=== PATIENT | male | born 1975 | race Caucasian/White ===

== ENCOUNTER 2016-08-23 18:38 | Emergency (ER) | payer BC, OTHER ==
[2016-08-23] MEDS ORDERED: Aspirin Low Dose CHEW TAB* 81 MG PO ONE (20:04)
[2016-08-23] MEDS ORDERED: Ondansetron INJ* 2 MG/ML VIAL IV ONE (20:05)
[2016-08-23] MEDS ORDERED: Morphine INJ* 4 MG/ML 1 ML SYRINGE IV ONE (20:05)
[2016-08-23] MEDS ORDERED: NS 0.9% 1000 ML* 1,000 ML IV ONE (20:05)
[2016-08-23 20:17] LABS: Hematocrit 47 % (42-52); Hemoglobin 15.8 g/dl (14.0-18.0); Mean Corpuscular HGB Conc 34 g/dl (31-36); Mean Corpuscular Hemoglobin 30 pg (27-31); Mean Corpuscular Volume 88 fL (80-94); Mean Platelet Volume 7 um3 (7.4-10.4); Red Blood Count 5.34 10^6/ul (4.0-5.4); Red Cell Distribution Width 15 % (10.5-15); White Blood Count 7.8 10^3/ul (3.5-10.8)
[2016-08-23 20:27] LABS: Albumin 4.3 g/dL (3.2-5.2); BUN/Creatinine Ratio 13.9 (8-20); Calcium 9.6 mg/dL (8.6-10.3); EGFR Non-African American 74.6 (>60); Globulin 2.6 g/dL (2-4); Total Bilirubin 0.6 mg/dL (0.2-1.0); Total Protein 6.9 g/dL (6.4-8.9)
[2016-08-23 20:29] LABS: Troponin I 0.01 ng/mL (<0.04)
[2016-08-23] MEDS ORDERED: Iohexol 350* (CONTRAST) 500 ML MDV IV ONE (21:11)
--- NOTE | 2016-08-23 21:49 | RAD ---
INDICATION: Chest pain radiating to the back after sitting in car for a long time. Assess for aortic dissection and pulmonary embolism. COMPARISON: November 07, 2015 CT abdomen pelvis. February 24, 2015 chest radiograph. TECHNIQUE: Multidetector CT images were obtained from the lung apices to the ischial tuberosities with 100 mL Omnipaque 350 IV contrast. Multiplanar reformation including maximum intensity projection and 3-D arterial volume rendering. No oral contrast administered. CHEST REPORT: Clear lungs and pleural spaces. Negative for pneumothorax. Negative for thoracic lymphadenopathy, cardiomegaly, pericardial effusion. Normal diameter thoracic aorta. Negative for dissection of the thoracic aorta. The pulmonary arteries are well-opacified to the segmental and subsegmental levels. No filling defects are identified to indicate pulmonary embolism. Negative for thoracic fractures or suspicious osseous lesions. Very mild thoracic degenerative spondylosis. CHEST IMPRESSION: 1. No evidence for aortic dissection. 2. No evidence for pulmonary embolism. 3. No acute intrathoracic disease evident. ABDOMEN PELVIS REPORT: Arterial phase only series limits assessment of the abdominal pelvic viscera. No abnormality of the liver, gallbladder, pancreas, or spleen evident. Negative for CT abnormality of the upper GI, small bowel, or infra cecal appendix. Mild colonic diverticulosis most prominent at the proximal sigmoid colon without findings of diverticulitis. Negative for perienteric inflammatory change, ascites, free air, hernias. Normal adrenal glands. Symmetric cortical phase enhancement of the kidneys. No focal renal lesions or hydronephrosis. Unremarkable ureters and largely decompressed urinary bladder limiting assessment. Symmetric seminal vesicles. Negative for lymphadenopathy. Normal diameter abdominal aorta and iliac arteries. Only minimal atherosclerotic plaque evident at the abdominal aorta. Negative for aortic dissection. Negative for stenosis of the visceral arteries including the bilateral dominant renal arteries and small accessory LEFT renal artery caudal to the dominant renal artery. Physiologic distention of the IVC. Mild bilateral hip joint osteoarthritis. No suspicious focal osseous lesions or fracture. ABDOMEN PELVIS IMPRESSION: 1. No evidence for aneurysm or dissection of the abdominal aorta. 2. Mild diverticulosis of the colon without findings of diverticulitis. 3. No acute abdominal pelvic pathologic process evident.
--- NOTE | 2016-08-23 23:47 | ED ---
Leatha Alan Janilya, scribed for Azucena Stallworth MD on 08/23/16 at 1932 . HPI Chest Pain - HPI Summary HPI Summary: A 41 y/o male came in [facility] presenting w/ a gradual onset of intermittent CP for about a week. At its worst, the pain severity is rated 5/10. The pain comes on when pt is at rest and lasts for a few hours. The pain radiates to back and abd. Pt states he felt like he was going to vomit. However, he did not feel like a reflux. He is not sure whether the pain is worse with deep breaths. Pt states he was in a car for 14 hours a few days ago while on a vacation. And today, for the past 2 hours, pt complains that the pain is more frequent and sharper in character. PMHx HTN. No PMHx of DM or hypercholesterolemia. - History of Current Complaint Chief Complaint: EDChestPainROMI Time Seen by Provider: 08/23/16 19:23 Hx Obtained From: Patient Onset/Duration: Started Days Ago, Atraumatic, Still Present Timing: Intermittent, Lasting Hours Initial Severity: Moderate Current Severity: Moderate Pain Intensity: 8 Pain Scale Used: 0-10 Numeric Chest Pain Location: Diffuse Chest Pain Radiates: Yes Chest Pain Radiates To:: Back, Other - abd Character: Sharp/Stabbing Aggravating Factor(s): Nothing Alleviating Factor(s): Nothing Associated Signs and Symptoms: Positive: Chest Pain, Nausea, Back Pain, Abdominal Pain. Negative: Vomiting - Allergy/Home Medications Allergies/Adverse Reactions: Allergies Allergy/AdvReac Type Severity Reaction Status Date / Time Ketorolac Tromethamine Allergy Hives Verified 12/21/13 22:56 [From Toradol] Metoclopramide [From Reglan] Allergy Agitation Verified 10/05/13 11:17 Sertraline [From Zoloft] Allergy Unknown Verified 12/25/15 13:57 Reaction Details PMH/Surg Hx/FS Hx/Imm Hx Previously Healthy: Yes Endocrine/Hematology History: Denies: Hx Diabetes, Hx Thyroid Disease Cardiovascular History: Reports: Hx Hypertension - MEDICATED, Other Cardiovascular Problems/Disorders - PREV CARDIAC CATH Denies: Hx Congestive Heart Failure, Hx Hypercholesterolemia Respiratory History: Reports: Hx Asthma Denies: Hx Chronic Obstructive Pulmonary Disease (COPD) GI History: Reports: Hx Gastroesophageal Reflux Disease Denies: Hx Ulcer History: Denies: Hx Renal Disease Musculoskeletal History: Reports: Other Musculoskeletal History - RIGHT ACL INJURY/SURGERY - Surgical History Surgery Procedure, Year, and Place: right knee acl repair Hx Anesthesia Reactions: No Infectious Disease History: No Infectious Disease History: Denies: Hx Clostridium Difficile, Hx Hepatitis, Hx Human Immunodeficiency Virus (HIV), Hx of Known/Suspected MRSA, Hx Shingles, Hx Tuberculosis, Traveled Outside the [place] in Last 30 Days - Family History Known Family History: Positive: Other - blood clot Negative: Cardiac Disease - Social History Occupation: Employed Full-time Lives: With Family Alcohol Use: Rare Substance Use Type: Reports: None Smoking Status (MU): Never Smoked Tobacco Review of Systems Positive: Chest Pain Positive: Abdominal Pain, Nausea. Negative: Vomiting Positive: Arthralgia - back pain, Myalgia - back pain All Other Systems Reviewed And Are Negative: Yes Physical Exam Triage Information Reviewed: Yes Vital Signs On Initial Exam: Initial Vitals Temp Pulse Resp BP Pulse Ox 97.5 F 81 16 188/104 100 08/23/16 18:40 08/23/16 18:40 08/23/16 18:40 08/23/16 18:40 08/23/16 18:40 Vital Signs Reviewed: Yes Appearance: Positive: Well-Appearing, No Pain Distress Skin: Positive: Warm, Skin Color Reflects Adequate Perfusion Eyes: Positive: EOMI, SUSHMA ENT: Positive: Pharynx normal, TMs normal Neck: Positive: Supple, Nontender Respiratory/Lung Sounds: Positive: Clear to Auscultation, Breath Sounds Present. Negative: Rales, Rhonchi, Wheezes Cardiovascular: Positive: RRR. Negative: Murmur, Rub, Other - no gallops Abdomen Description: Positive: Nontender, Soft. Negative: Distended, Guarding, Other: - no guarding Bowel Sounds: Positive: Present Musculoskeletal: Positive: Strength/ROM Intact, Other - Reproducible tenderness of sternum. Negative: Edema Left, Edema Right Neurological: Positive: Sensory/Motor Intact, Alert, Oriented to Person Place, Time, CN Intact II-III Psychiatric: Positive: Affect/Mood Appropriate - Wrights Coma Scale Coma Scale Total: 15 Diagnostics - Vital Signs Vital Signs Temp Pulse Resp BP Pulse Ox 08/23/16 19:11 98.1 F 76 16 144/91 97 08/23/16 19:00 75 16 144/91 96 08/23/16 18:57 73 12 97 08/23/16 18:55 146/93 08/23/16 18:40 97.5 F 81 16 188/104 100 - Laboratory Lab Results: Lab Results 08/23/16 08/23/16 08/23/16 Range/Units 19:05 19:05 20:04 WBC 7.8 (3.5-10.8) 10^3/ul RBC 5.34 (4.0-5.4) 10^6/ul Hgb 15.8 (14.0-18.0) g/dl Hct 47 (42-52) % MCV 88 (80-94) fL MCH 30 (27-31) pg MCHC 34 (31-36) g/dl RDW 15 (10.5-15) % Plt Count 198 (150-450) 10^3/ul MPV 7 L (7.4-10.4) um3 Neut % (Auto) 62.2 (38-83) % Lymph % (Auto) 20.4 L (25-47) % [place] % (Auto) 9.6 H (1-9) % Eos % (Auto) 5.4 (0-6) % Baso % (Auto) 2.4 H (0-2) % Absolute Neuts (auto) 4.9 (1.5-7.7) 10^3/ul Absolute Lymphs (auto) 1.6 (1.0-4.8) 10^3/ul Absolute Monos (auto) 0.8 (0-0.8) 10^3/ul Absolute Eos (auto) 0.4 (0-0.6) 10^3/ul Absolute Basos (auto) 0.2 (0-0.2) 10^3/ul Absolute Nucleated RBC 0.04 10^3/ul Nucleated RBC % 0.5 D-Dimer, Quantitative < 200 (Less Than 230) ng/mL Sodium 135 (133-145) mmol/L Potassium 4.0 (3.5-5.0) mmol/L Chloride 101 (101-111) mmol/L Carbon Dioxide 28 (22-32) mmol/L Anion Gap 6 (2-11) mmol/L BUN 15 (6-24) mg/dL Creatinine 1.08 (0.67-1.17) mg/dL Est GFR ( Amer) 96.0 (>60) Est GFR (Non-Af Amer) 74.6 (>60) BUN/Creatinine Ratio 13.9 (8-20) Glucose 107 H (70-100) mg/dL Lactic Acid (0.5-2.0) mmol/L Calcium 9.6 (8.6-10.3) mg/dL Total Bilirubin 0.60 (0.2-1.0) mg/dL AST 28 (13-39) U/L ALT 48 (7-52) U/L Alkaline Phosphatase 79 (34-104) U/L Troponin I 0.01 (<0.04) ng/mL Total Protein 6.9 (6.4-8.9) g/dL Albumin 4.3 (3.2-5.2) g/dL Globulin 2.6 (2-4) g/dL Albumin/Globulin Ratio 1.7 (1-3) 08/23/16 08/23/16 Range/Units 20:04 23:09 WBC (3.5-10.8) 10^3/ul RBC (4.0-5.4) 10^6/ul Hgb (14.0-18.0) g/dl Hct (42-52) % MCV (80-94) fL MCH (27-31) pg MCHC (31-36) g/dl RDW (10.5-15) % Plt Count (150-450) 10^3/ul MPV (7.4-10.4) um3 Neut % (Auto) (38-83) % Lymph % (Auto) (25-47) % [place] % (Auto) (1-9) % Eos % (Auto) (0-6) % Baso % (Auto) (0-2) % Absolute Neuts (auto) (1.5-7.7) 10^3/ul Absolute Lymphs (auto) (1.0-4.8) 10^3/ul Absolute Monos (auto) (0-0.8) 10^3/ul Absolute Eos (auto) (0-0.6) 10^3/ul Absolute Basos (auto) (0-0.2) 10^3/ul Absolute Nucleated RBC 10^3/ul Nucleated RBC % D-Dimer, Quantitative (Less Than 230) ng/mL Sodium (133-145) mmol/L Potassium (3.5-5.0) mmol/L Chloride (101-111) mmol/L Carbon Dioxide (22-32) mmol/L Anion Gap (2-11) mmol/L BUN (6-24) mg/dL Creatinine (0.67-1.17) mg/dL Est GFR ( Amer) (>60) Est GFR (Non-Af Amer) (>60) BUN/Creatinine Ratio (8-20) Glucose (70-100) mg/dL Lactic Acid 1.3 (0.5-2.0) mmol/L Calcium (8.6-10.3) mg/dL Total Bilirubin (0.2-1.0) mg/dL AST (13-39) U/L ALT (7-52) U/L Alkaline Phosphatase (34-104) U/L Troponin I 0.00 (<0.04) ng/mL Total Protein (6.4-8.9) g/dL Albumin (3.2-5.2) g/dL Globulin (2-4) g/dL Albumin/Globulin Ratio (1-3) Result Diagrams: 08/23/16 19:05 08/23/16 20:04 Lab Statement: Any lab studies that have been ordered have been reviewed, and results considered in the medical decision making process. - CT CTA abd/pel CT Interpretation: No Acute Changes - ABDOMEN PELVIS IMPRESSION: 1. No evidence for aneurysm or dissection of the abdominal aorta. 2. Mild diverticulosis of the colon without findings of diverticulitis. 3. No acute abdominal pelvic pathologic process evident. CT Interpretation Completed By: Radiologist - EKG 1846 Cardiac Rate: NL - 85 bpm EKG Rhythm: Sinus Rhythm EKG Interpretation: Mild diffuse flattening of T waves that's new from 2014 Chest Pain Course/Dx - Course Course Of Treatment: A 41 y/o male came in [facility] presenting w/ a gradual onset of intermittent CP for about a week. At its worst, the pain severity is rated 5/ 10. The pain comes on when pt is at rest and lasts for a few hours. The pain radiates to back and abd. Pt states he felt like he was going to vomit. However , he did not feel like a reflux. He is not sure whether the pain is worse with deep breaths. Pt states he was in a car for 14 hours a few days ago while on a vacation. And today, for the past 2 hours, pt complains that the pain is more frequent and sharper in character. PMHx HTN. No PMHx of DM or hypercholesterolemia. EKG was NSR of 85 bpm and shows mild diffuse flattening of T waves that is new from 02/25/2015. CTA chest/abd/pel showed was negative. second trop is negative , ddimer neg and cta neg pt aware he needs an outpt stress - Diagnoses Provider Diagnoses: Chest pain Discharge - Discharge Plan Condition: Stable Disposition: HOME The documentation as recorded by the Leatha vidal Janilya accurately reflects the service I personally performed and the decisions made by me, Azucena Stallworth MD.
[2016-08-24 01:18] VITALS: BP 128/99
== END 2016-08-24 01:20 | disposition home or self-care (01) ==
LOC: ED 18:38
DX: R07.9 Chest pain, unspecified (principal); R11.0 Nausea; M54.9 Dorsalgia, unspecified; R10.9 Unspecified abdominal pain
CPT/HCPCS: 36415; 71275; 74174; 80053; 83605; 84484; 85025; 85379; 93005; 99284; A9270-GY; J2270; J2405; Q9967

== ENCOUNTER 2016-12-07 18:04 | Emergency (ER) | payer BC ==
[2016-12-07] MEDS ORDERED: NS 0.9% 1000 ML* 1,000 ML IV ONE (19:11)
[2016-12-07] MEDS ORDERED: Albuterol/Ipratropium NEB.SOL* Albuterol 2.5 MG/Ipratropium 0.5 MG 3 ML INH ONE (19:11)
[2016-12-07] MEDS ORDERED: Aspirin TAB* 325 MG PO ONE (19:11)
[2016-12-07] MEDS ORDERED: Morphine INJ* 4 MG/ML 1 ML SYRINGE IV ONE ×2 (19:11→20:10)
[2016-12-07 19:27] LABS: Hematocrit 45 % (42-52); Hemoglobin 15.4 g/dl (14.0-18.0); Mean Corpuscular HGB Conc 34 g/dl (31-36); Mean Corpuscular Hemoglobin 30 pg (27-31); Mean Corpuscular Volume 87 fL (80-94); Mean Platelet Volume 7 um3 (7.4-10.4); Red Blood Count 5.16 10^6/ul (4.0-5.4); Red Cell Distribution Width 14 % (10.5-15)
[2016-12-07 19:44] LABS: Albumin 4.3 g/dL (3.2-5.2); BUN/Creatinine Ratio 17.6 (8-20); Calcium 8.9 mg/dL (8.6-10.3); EGFR Non-African American 74.6 (>60); Globulin 2.5 g/dL (2-4); Potassium 3.9 mmol/L (3.5-5.0); Total Bilirubin 0.6 mg/dL (0.2-1.0); Total Protein 6.8 g/dL (6.4-8.9)
[2016-12-07 19:45] LABS: Troponin I 0.01 ng/mL (<0.04)
[2016-12-07 20:07] LABS: TSH (Thyroid Stimulating Horm) 1.9 mcIU/mL (0.34-5.60)
--- NOTE | 2016-12-07 20:31 | RAD ---
Indication: Chest pain. Single frontal view of the chest performed at 1855 hours was reviewed. Comparison is made with previous exam dated February 24, 2015. No mediastinal shift is noted. Heart is of normal size and configuration. Lung muro appear clear. IMPRESSION: NO ACTIVE CARDIOPULMONARY DISEASE IS NOTED.
--- NOTE | 2016-12-07 22:01 | ED ---
Juaquin Alan SooYoung, scribed for Azucena Stallworth MD on 12/07/16 at 1910 . HPI Chest Pain - HPI Summary HPI Summary: A 41 y/o M [place] presents to ED with c/o CP radiating to L-side of neck and into back onset 1700. PMHx: GERD, but today's sx don't feel like that. Associated sx : HENSLEY, diaphoresis, SOB. Denies LE pain. Aggravating factors: deep breaths. States he's been sitting in the car for 8 hours today. - History of Current Complaint Chief Complaint: EDChestPainROMI Time Seen by Provider: 12/07/16 18:52 Hx Obtained From: Patient Onset/Duration: Started Hours Ago, Atraumatic, Still Present Timing: Constant Initial Severity: Mild Current Severity: Mild Pain Intensity: 0 Pain Scale Used: 0-10 Numeric Chest Pain Location: Diffuse Chest Pain Radiates: Yes Chest Pain Radiates To:: Back, Neck Aggravating Factor(s): Deep Breaths Associated Signs and Symptoms: Positive: Headaches - severe, Shortness of Breath , Other: - pos: diaphoresis. Negative: Calf Pain/Swelling - Allergy/Home Medications Allergies/Adverse Reactions: Allergies Allergy/AdvReac Type Severity Reaction Status Date / Time Ketorolac Tromethamine Allergy Hives Verified 12/07/16 18:37 [From Toradol] Metoclopramide [From Reglan] Allergy Agitation Verified 12/07/16 18:37 Sertraline [From Zoloft] Allergy Unknown Verified 12/07/16 18:37 Reaction Details PMH/Surg Hx/FS Hx/Imm Hx Previously Healthy: No Endocrine/Hematology History: Denies: Hx Diabetes, Hx Thyroid Disease Cardiovascular History: Reports: Hx Hypertension - MEDICATED, Other Cardiovascular Problems/Disorders - PREV CARDIAC CATH Denies: Hx Congestive Heart Failure, Hx Hypercholesterolemia, Hx Myocardial Infarction Respiratory History: Reports: Hx Asthma Denies: Hx Chronic Obstructive Pulmonary Disease (COPD) GI History: Reports: Hx Gastroesophageal Reflux Disease Denies: Hx Ulcer History: Denies: Hx Renal Disease Musculoskeletal History: Reports: Other Musculoskeletal History - RIGHT ACL INJURY/SURGERY - Surgical History Surgery Procedure, Year, and Place: right knee acl repair Hx Anesthesia Reactions: No Infectious Disease History: No Infectious Disease History: Denies: Hx Clostridium Difficile, Hx Hepatitis, Hx Human Immunodeficiency Virus (HIV), Hx of Known/Suspected MRSA, Hx Shingles, Hx Tuberculosis, Traveled Outside the [place] in Last 30 Days - Family History Known Family History: Positive: Other - grandmother - blood clot; grandmother - [place] Negative: Cardiac Disease - Social History 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 Lives: With Family Alcohol Use: Weekly Alcohol Amount: a few times a week 3-4 drinks at a time Hx Substance Use: No Substance Use Type: Reports: None Hx Tobacco Use: No Smoking Status (MU): Never Smoked Tobacco Review of Systems Positive: Skin Diaphoresis Positive: Chest Pain Positive: Shortness Of Breath Positive: Other - neg: LE pain Positive: Headache All Other Systems Reviewed And Are Negative: Yes Physical Exam Triage Information Reviewed: Yes Vital Signs On Initial Exam: Initial Vitals Temp Pulse Resp Pulse Ox 97.9 F 80 20 97 12/07/16 18:08 12/07/16 18:08 12/07/16 18:08 12/07/16 18:08 Vital Signs Reviewed: Yes Appearance: Positive: Well-Appearing, No Pain Distress Skin: Positive: Warm, Skin Color Reflects Adequate Perfusion, Dry Eyes: Positive: EOMI, SUSHMA ENT: Positive: Pharynx normal, TMs normal Neck: Positive: Supple, Nontender Respiratory/Lung Sounds: Positive: Clear to Auscultation, Breath Sounds Present. Negative: Rales, Rhonchi, Wheezes Cardiovascular: Positive: RRR. Negative: Murmur, Rub, Other - neg: gallop Abdomen Description: Positive: Nontender, Soft. Negative: Distended, Guarding, Other: - neg: rebound Bowel Sounds: Positive: Present Musculoskeletal: Positive: Strength/ROM Intact. Negative: Edema Left, Edema Right Neurological: Positive: Sensory/Motor Intact, Alert, Oriented to Person Place, Time, CN Intact II-III Psychiatric: Positive: Affect/Mood Appropriate Diagnostics - Vital Signs Vital Signs Temp Pulse Resp BP Pulse Ox 12/07/16 18:34 98.9 F 86 16 166/104 96 12/07/16 18:30 90 22 166/104 96 12/07/16 18:22 84 18 98 12/07/16 18:21 154/103 12/07/16 18:11 173/106 12/07/16 18:08 97.9 F 80 20 97 - Laboratory Lab Results: Lab Results 12/07/16 12/07/16 12/07/16 Range/Units 19:15 19:15 19:15 WBC 7.0 (3.5-10.8) 10^3/ul RBC 5.16 (4.0-5.4) 10^6/ul Hgb 15.4 (14.0-18.0) g/dl Hct 45 (42-52) % MCV 87 (80-94) fL MCH 30 (27-31) pg MCHC 34 (31-36) g/dl RDW 14 (10.5-15) % Plt Count 207 (150-450) 10^3/ul MPV 7 L (7.4-10.4) um3 Neut % (Auto) 54.3 (38-83) % Lymph % (Auto) 25.0 (25-47) % [place] % (Auto) 10.5 H (1-9) % Eos % (Auto) 6.8 H (0-6) % Baso % (Auto) 3.4 H (0-2) % Absolute Neuts (auto) 3.8 (1.5-7.7) 10^3/ul Absolute Lymphs (auto) 1.7 (1.0-4.8) 10^3/ul Absolute Monos (auto) 0.7 (0-0.8) 10^3/ul Absolute Eos (auto) 0.5 (0-0.6) 10^3/ul Absolute Basos (auto) 0.2 (0-0.2) 10^3/ul Absolute Nucleated RBC 0.01 10^3/ul Nucleated RBC % 0.1 D-Dimer, Quantitative (Less Than 230) ng/mL Sodium 135 (133-145) mmol/L Potassium 3.9 (3.5-5.0) mmol/L Chloride 104 (101-111) mmol/L Carbon Dioxide 25 (22-32) mmol/L Anion Gap 6 (2-11) mmol/L BUN 19 (6-24) mg/dL Creatinine 1.08 (0.67-1.17) mg/dL Est GFR ( Amer) 96.0 (>60) Est GFR (Non-Af Amer) 74.6 (>60) BUN/Creatinine Ratio 17.6 (8-20) Glucose 93 (70-100) mg/dL Lactic Acid 0.8 (0.5-2.0) mmol/L Calcium 8.9 (8.6-10.3) mg/dL Total Bilirubin 0.60 (0.2-1.0) mg/dL AST 23 (13-39) U/L ALT 40 (7-52) U/L Alkaline Phosphatase 72 (34-104) U/L CK-MB (CK-2) 2.5 (0.6-6.3) ng/mL Troponin I 0.01 (<0.04) ng/mL B-Natriuretic Peptide ( - 100) pg/mL Total Protein 6.8 (6.4-8.9) g/dL Albumin 4.3 (3.2-5.2) g/dL Globulin 2.5 (2-4) g/dL Albumin/Globulin Ratio 1.7 (1-3) TSH 1.90 (0.34-5.60) mcIU/mL 12/07/16 12/07/16 Range/Units 19:15 19:15 WBC (3.5-10.8) 10^3/ul RBC (4.0-5.4) 10^6/ul Hgb (14.0-18.0) g/dl Hct (42-52) % MCV (80-94) fL MCH (27-31) pg MCHC (31-36) g/dl RDW (10.5-15) % Plt Count (150-450) 10^3/ul MPV (7.4-10.4) um3 Neut % (Auto) (38-83) % Lymph % (Auto) (25-47) % [place] % (Auto) (1-9) % Eos % (Auto) (0-6) % Baso % (Auto) (0-2) % Absolute Neuts (auto) (1.5-7.7) 10^3/ul Absolute Lymphs (auto) (1.0-4.8) 10^3/ul Absolute Monos (auto) (0-0.8) 10^3/ul Absolute Eos (auto) (0-0.6) 10^3/ul Absolute Basos (auto) (0-0.2) 10^3/ul Absolute Nucleated RBC 10^3/ul Nucleated RBC % D-Dimer, Quantitative < 200 (Less Than 230) ng/mL Sodium (133-145) mmol/L Potassium (3.5-5.0) mmol/L Chloride (101-111) mmol/L Carbon Dioxide (22-32) mmol/L Anion Gap (2-11) mmol/L BUN (6-24) mg/dL Creatinine (0.67-1.17) mg/dL Est GFR ( Amer) (>60) Est GFR (Non-Af Amer) (>60) BUN/Creatinine Ratio (8-20) Glucose (70-100) mg/dL Lactic Acid (0.5-2.0) mmol/L Calcium (8.6-10.3) mg/dL Total Bilirubin (0.2-1.0) mg/dL AST (13-39) U/L ALT (7-52) U/L Alkaline Phosphatase (34-104) U/L CK-MB (CK-2) (0.6-6.3) ng/mL Troponin I (<0.04) ng/mL B-Natriuretic Peptide 9 ( - 100) pg/mL Total Protein (6.4-8.9) g/dL Albumin (3.2-5.2) g/dL Globulin (2-4) g/dL Albumin/Globulin Ratio (1-3) TSH (0.34-5.60) mcIU/mL Result Diagrams: 12/07/16 19:15 12/07/16 19:15 Lab Statement: Any lab studies that have been ordered have been reviewed, and results considered in the medical decision making process. - Radiology CXR Xray Interpretation: No Acute Changes - IMPRESSION: No active cardiopulmonary dz. Radiology Interpretation Completed By: Radiologist - EKG 1812 Cardiac Rate: NL - 85bpm EKG Rhythm: Sinus Rhythm ST Segment: Normal - no ST elevation Re-Evaluation - Re-Evaluation 1 Re-Evaluation Time: 20:08 Change: Improved Comment: Discussing results thus far with pt. 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 His ddimer was neg he is awaiting a 6 hour trop and if it is neg he will be discharged - Diagnoses Provider Diagnoses: Chest pain Discharge - Discharge Plan Condition: Stable Disposition: HOME Discharge Disposition Comment: SO to Dr. Gillis at shift change, pending 2nd trop at 2300 Patient Education Materials: Chest Pain (ED) Referrals: Brandy Anguiano MD [Primary Care Provider] - 3 Days Additional Instructions: Follow up with your primary care provider in 2-3 days. Please return to the ED if you experience new or worsening symptoms. The documentation as recorded by the Juaquin vidal SooYoung accurately reflects the service I personally performed and the decisions made by me, Azucena Stallworth MD.
[2016-12-08 02:25] VITALS: BP 127/88
== END 2016-12-08 02:29 | disposition home or self-care (01) ==
LOC: ED 18:04
DX: R07.89 Other chest pain (principal); R51 Headache; R06.02 Shortness of breath; R61 Generalized hyperhidrosis; I10 Essential (primary) hypertension; J45.909 Unspecified asthma, uncomplicated; K21.9 Gastro-esophageal reflux disease without esophagitis
CPT/HCPCS: 36415; 71010; 80053; 82553; 83605; 83880; 84443; 84484; 85025; 85379; 93005; 94640; 94760; 96361; 96374; 96376; 99284; A9270-GY; J2270

== ENCOUNTER 2017-05-07 04:53 | Emergency (ER) | payer BC ==
[2017-05-07 06:16] LABS: ABS Basophils 0.1 10^3/ul (0-0.2); ABS Eosinophils 0.5 10^3/ul (0-0.6); ABS Lymphocytes 1.3 10^3/ul (1.0-4.8); ABS Neutrophils 4.3 10^3/ul (1.5-7.7); ABS Nucleated RBC 0 10^3/ul; Eosinophil % 6.6 % (0-6); Hematocrit 47 % (42-52); Hemoglobin 16.1 g/dl (14.0-18.0); Lymphocyte % 18.8 % (25-47); Mean Corpuscular HGB Conc 35 g/dl (31-36); Mean Corpuscular Hemoglobin 30 pg (27-31); Mean Corpuscular Volume 87 fL (80-94); Mean Platelet Volume 7 um3 (7.4-10.4); Nucleated Red Blood Cells % 0; Platelet Count 211 10^3/ul (150-450); Red Blood Count 5.35 10^6/ul (4.0-5.4); Red Cell Distribution Width 14 % (10.5-15); White Blood Count 7.1 10^3/ul (3.5-10.8)
[2017-05-07] MEDS ORDERED: Ketorolac INJ* 30 MG/ML 1 ML VIAL IV PUSH ONE (06:17)
[2017-05-07 06:30] LABS: EGFR Non-African American 73.5 (>60)
[2017-05-07 08:11] VITALS: BP 133/93
--- NOTE | 2017-05-07 08:14 | RAD ---
INDICATION: Worse headache of his life. COMPARISON: Comparison is made to prior CT of the brain from December 12, 2011. TECHNIQUE: Contiguous axial sections of the brain were obtained from the skull base to the vertex without contrast. FINDINGS: The ventricles, cisterns and sulci are within normal limits. No significant focal abnormality or mass effect is seen. There is no evidence for hemorrhage. No significant focal osseous abnormality is seen. There is mild mucosal thickening within the ethmoid air cells. The visualized portion of the paranasal sinuses and mastoid air cells otherwise appear clear. IMPRESSION: NO EVIDENCE FOR ACUTE INTRACRANIAL ABNORMALITY.
--- NOTE | 2017-05-07 08:24 | RAD ---
Indication: Worst headache of life. Comparison: CT brain of the same date and September 11, 2011 MRI brain. 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 Report: Mild mucosal thickening at the RIGHT maxillary sinus and ethmoid sinuses. Negative for paranasal sinus fluid levels or gas bubbles to suggest acute sinusitis. Mucosal thickening narrows the infundibula of the anterior ostiomeatal units. Mild leftward deviation of the nasal septum. Patent choana and unremarkable nasopharyngeal mucosal space contours. Clear mastoid air spaces. Unremarkable orbital contents. IMPRESSION: Mild mucosal thickening at the RIGHT maxillary and ethmoid sinuses. Negative for stigmata of acute sinusitis.
== END 2017-05-07 08:11 | disposition home or self-care (01) ==
LOC: ED 04:53
DX: G44.009 Cluster headache syndrome, unspecified, not intractable (principal)
CPT/HCPCS: 36415; 70450; 70486; 80053; 85025; 86708; 86803; 87340; 96374; 99284; J1885

== ENCOUNTER 2017-06-23 20:16 | Observation (INO) | payer BC ==
--- OUTSIDE RECORDS SUMMARY | 2017-06-23 20:55 | XMS REPORT ---
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 Ko Estevez MD Primary Care Physician Unavailable Payers Type Date Identification Numbers Payment Provider Subscriber Commercial Policy Number: [id number] BS Jose Mendoza PayID: [id number] [address] [address] Medigap Part B Effective: 2012 Policy Number: [id number] BS Joe Mendoza Expires: 2013 Group Name: [id number] [address] PayID: [id number] [place] [address] [address] Medigap Part B Expires: 2016 Policy Number: [employer] Jennifer Jasmin Miguel [id number] [place] Group Number: [id number] [id number] PayID: [id number] [place] [address] Medigap Part B Expires: 2013 Policy Number: BS Jose Mendoza [id number] PayID: [id number] [address] [address] Medigap Part B Expires: 2010 Policy Number: BS Of GEGE Mendoza [id number] Group Number: [id number] [address] PayID: [id number] [place] [address] [address] Medigap Part B Expires: 2010 PayID: [id number] BS Of GEGE Mendoza [address] [address] Medigap Part B Effective: 2010 Policy Number: BS Of GEGE Mendoza [id number] Expires: 2012 PayID: [id number] [address] [address] [place] [address] Problems Date Description Provider Status Onset: 03/01/2007 Intrinsic asthma without status Ko Estevez Active asthmaticus Flor,FACP Onset: 03/01/2007 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 Active Onset: 07/09/2010 Restless legs Blas Garcia M.D. Active Onset: 10/01/2011 Anxiety state Blas Garcia M.D. Active Onset: 07/14/2012 Lateral epicondylitis Blas Garcia M.D. Active Onset: 02/09/2013 Mixed hyperlipidemia Blas Garcia M.D. Active Onset: 01/26/2014 Obstructive sleep apnea syndrome Tani Brown M.D. 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 Inactive Inactive: 07/06/2014 Onset: 07/14/2012 Neck pain Blas Garcia M.D. Inactive Inactive: 07/06/2014 Onset: 01/05/2013 Chest pain Blas Garcia M.D. Inactive Inactive: 07/06/2014 Onset: 02/09/2013 Blood chemistry abnormal Blas Garcia M.D. Inactive Inactive: 07/06/2014 Onset: 07/06/2014 Hypertriglyceridemia Brandy Anguiano M.D. Inactive Inactive: 12/24/2016 Note: 230 Onset: 03/01/2007 Generalized anxiety disorder Ko Estevez M.D.,FACP Resolved Resolved: 07/06/2014 Onset: 10/22/2007 Extrinsic asthma without Ko Estevez M.D.,FACP Resolved status asthmaticus Resolved: 07/06/2014 Onset: 12/10/2011 Prolonged depressive adjustment Blas Garcia M.D. 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 [employer] Cigarette Use Never Smoked Cigarettes ETOH Use 12/24/2016 consumes 5-6 beers per week Recreational Drug Use Never Used Drugs Smoking Patient has never smoked Daily Caffeine Consumes on average 2 cups of regular coffee per day Exercise Type/Frequency Exercises regularly carries wood /stacking/cleaning/cooki ng, walking 1 mile per day General Hx Text Allergies, Adverse Reactions, Alerts Date Description Reaction Status Severity Comments 03/01/2007 Zoloft active priapism 10/22/2007 Reglan active 11/11/2013 Toradol active Moderate to Severe 02/28/2015 Bee Sting swelling in a matter of active Severe mins Medications Medication Date Status Form Strength Qnty SIG Indications Ordering Provider Tamiflu 05/25 Active Capsules 75mg 10cap 1 by mouth s twice a day x Delmy Estevez 5 maycol Ray,FACP Prednisone 05/25 Hx Tablets 10mg 20tab take 4 tab J45.901 Jimmy s daily x 2 days Júnior, MOLDER TRIMMER - then 3 tab 06/01 daily x 2 days, then 2 tab daily for 2 day, and 1 tab for 2 day. Cheratussin 05/25 Active Syrup 100-10mg/ 118ml take 5-10 J11.89 Jimmy ac 5ML milliliters Júnior, MOLDER TRIMMER every 4-6 hours as needed for cough. Zantac 12/24 Active Tablets 150mg 30tab 1 by mouth in s PM as needed Delmy Estevez M.D.,FACP Viberzi 01/22 Active Tablets 100mg 60tab by mouth twice K58.0 s a day (patient Delmy Estevez, bringing wilman Ray,FACP card) Ventolin HFA 02/28 Active Aerosol 108(90Bas 18uni inhale 2 puffs e) ts by mouth four Delmy Estevez, mcg/Act times a day as Flor,FACP needed Aspirin Adult 02/[address] 81mg 90tab once a day OTC Brandy Low Dose /2014 s Flor Anguiano Epipen 2-Edward 07/06 Active Solution 0.3mg/0.3 2unit subcutaneously Brandy /2015 Auto-Injec ML s as needed for shira Anguiano M.D. Ropinirole 01/26 Active Tablets 0.25mg 30tab take one po 2 Tani SK. HCL s hours before Flor Brown bed time. read the package insert. as needed Blood 11/11 Active Misc 1unit use daily or 796.2 Nanci Pressure /2013 s as directed Puma, Monitor N.P. Auto Inflate Symbicort 03/27 Active Aerosol 160-4.5mc 1unit 2 puff twice a g/Act s day Delmy Estevez M.D.,[facility] Xopenex 09/01 Active Nebulizer 1.25mg/0. 100un four times a J45.40 -Son Concentrate /2008 5ML its day as needed Delmy Estevez M.D.,[facility] Cpap Active Device qhs Unknown Lisinopril Active Tablets 10mg 90tab take one Ko / s tablet by Delmy Estevez, mouth every M.Delmy,FACP day Pantoprazole Active Tablets DR 40mg 30tab take one K21.9 Felicity Sodium / s tablet by Taco, mouth every MOLDER TRIMMER day Prednisone 02/25 Hx Tablets 20mg 10tab 1 by mouth J45.901 Chao Horta /2016 s every day Teri Sweet M.D. 05/25 Ferrous 11/12 Hx Tablets 325(65Fe) 60tab 1 by mouth D64.9 Jay Sulfate /2015 mg s twice a day Vietnamese, MOLDER TRIMMER - 01/22 Pantoprazole 09/[address] 20mg 30tab Take One K21.9 Brandy Sodium /2015 s Tablet By Silvio, - Mouth Every M.D. 11/06 Morning Needed Pantoprazole 08/[address] 40mg 60tab 1 by mouth K21.9 Brandy Sodium /2015 s every day Teri AnguianoDAmberly 09/30 Pantoprazole 07/[address] 20mg 30tab Take One G25.81 Brandy Sodium s Tablet By Silvio, - Mouth Every M.D. 08/20 Morning Needed Ventolin HFA 07/26 Hx Aerosol 108(90Bas 18uni inhale 2 puffs e) ts by mouth four Silvio, - mcg/Act times a day as M.D. 02/27 Medrol (Edward) 08/26 Hx Tablets 4mg 1tabs as directed 493.92 Teri Martinez M.D. 11/11 Benzonatate 08/26 Hx Capsules 100mg 30cap 1 by mouth 3x 493.92 s per day Teri Martinez M.D. 11/11 Doxycycline 02/09 Hx Solution 100mg 20uni bid 466.0 [place] cl Rec Teri Hernandez M.D. 02/09 Doxycycline 02/09 Hx Capsules 100mg 20cap bid po Blas Hyclate Teri Velasquez M.D. 08/26 Flexeril 07/14 Hx Tablets 10mg 10tab 1 tab hs 723.1 Jayde /2013 Teri Montemayor M.D. 01/05 Amoxicillin/C 07/14 Hx Tablets 875-125mg 20tab 1 po bid 466.0 Blas lavulanate Cedric Velasquez M.D. 01/05 Viibryd 03/24 Hx Tablets 20mg 30tab qd 309.1 [place] Teri Velasquez M.D. 01/05 Azithromycin 03/24 Hx Tablets 250mg 6tabs 2 tab today 466.0 and then 1tab Jose, - daily M.D. 07/14 Prednisone 03/24 Hx Tablets 10mg 30tab 5tabx 2days,4 466.0 s [id number] Jose, - [id number],2ta M.D. 07/14 sw8aksu,1tabxd ay. Celexa 12/09 Hx Tablets 20mg 30tab 1 po qd s Jose - M.DAmberly 12/23 Zolpidem 12/09 Hx Tablets 10mg 30tab 1/ to 1 tab 780.52 [place] Tartrate s po qhs prn Teri Garcia M.DAmberly 01/05 Viibryd 12/09 Hx Tablets 40mg 30tab 1 maribel 309.1 s Teri Garcia M.DAmberly 03/24 Citalopram 09/30 Hx Tablets 40mg 30tab 1 po qd 300.00 [place] Hydrobromide s Jose - M.DAmberly 12/23 Zolpidem 09/17 Hx Tablets 5mg 20tab 1 tab by mouth 300.00 Brandy Tartrate s in night as Silvio - needed M.DAmberly 12/09 Meclizine HCL 09/17 Hx Tablets 25mg 20tab 1 tab every 12 386.19 Brandy s hrs Teri Anguiano M.D. 12/09 Venlafaxine 09/08 Hx Caps ER 37.5mg 1mont 1 tab po every 300.02 Jayde HCL ER 24HR h day 7 days opal Martinez, - 2 tab po every M.D. 09/17 day 3 Zithromax 07/17 Hx Tablets 250mg 1tabs 2tab today and 466.0 [place] Z-Edward 1tab daily x Jose, - 4days M.D. 09/08 Augmentin 07/09 Hx Tablets 875-125mg 20tab po bid 466.0 s Teri Garcia.DAmberly 07/09 Proctofoam HC 03/15 Hx Foam 1-1% 1unit apply bid 455.4 Teri Velasquez M.D. 09/08 Doxycycline 07/09 Hx Tablets 100mg 28tab 1 po bid Blas s Teri Garcia M.D. 09/08 Asmanex 120 03/05 Hx Aerosol 220mcg/In one 1 inh bid 493.00 Blas Metered Doses h Teri Garcia M.D. 03/27 Protonix 03/[address] 40mg 30tab Take One G25.81 Brandy s Tablet By Silvio, - Mouth Every M.DAmberly 07/01 Ceftin 04/12 Hx Tablets 500mg 14tab twice a day 493.92 s for 7 days Teri Sanchez M.D. 08/07 Prednisone 01/29 Hx Tablets 10mg 45tab to taken as 493.00 s directed. Teri Sanchez M.D. 08/07 Doxycycline 01/29 Hx Capsules 100mg 20cap 1 tablet po 493.00 [facility] s bid x 10 days , Teri Smiley M.D. 08/07 Zithromax 01/22 Hx Tablets 500mg 3tabs 1 tablet po 493.00 daily for 3 , Teri Smiley.DAmberly 08/07 Tamiflu 01/22 Hx Capsules 75mg 10cap 1 tablet po 493.00 sen s bid , Teri Smiley M.D. 08/07 Tessalon 01/22 Hx Capsules 100mg 30cap 1 po tid 493.00 Chloe s Sherice - M.D. 08/07 Protonix 11/[address] 20mg 30tab 1 po qd Teri Boyd M.D. 03/05 Diltiazem CD 03/27 Hx Caps ER 180mg 30cap 1 po qd 401.1 Chloe 24HR Sherice mercedes - M.D. 03/05 Clarinex 03/17 Hx Tablets 5mg 30tab 1 PO qd 493.00 Ko Teri Brantley M.D.,[facility] 09/01 Clarinex 03/17 Hx Tablets 5mg 30tab 1 po qd 493.00 Teri Velasquez M.D. 01/25 Avelox 03/17 Hx Tablets 400mg 10tab 1 qd x 10 days 493.00 Teri Brantley M.D.,[facility] 09/01 Prednisone 03/17 Hx Tablets 10mg 20tab 4 tabs qdx 2 493.00 s days then 3 Delmy Estevez - tabs daily for M.D.,[facility] 09/01 2 days then tabs daily for 2 days then 1 tab daily x 2 day Zithromax 03/13 Hx Tablets 250mg 1Pak take as Thananart, Z-Edward Teri Melgar M.D. 09/01 Amrix 01/18 Hx Caps ER 30mg 30cap 1 PO QHS 24HR Teri Brantley M.D.,[facility] 03/05 Amrix 01/12 Hx Caps ER 15mg 14cap 1 PO QHS 24HR Teri Brantley M.D.,[facility] 01/18 Lidoderm 01/04 Hx Patches 5% 30uni 1-2 Patches qd 922.33 Ko Patch /2007 tommy Estevez, - On Flor,[facility] 09/01 For 12H Off /2008 For 12H Tylenol/Codei 01/02 Hx Tablets #3 40tab 1-2 po qhs prn Ko ne #3 /2007 Teri [facility]antley M.D.,[facility] 09/01 Requip 12/12 Hx Tablets 1mg 30tab 1 po hs prn Teri Velasquez M.D. 12/09 Claritin 10/21 Hx Tablets 10mg 30tab po qd prn Thananart, Teri Huston M.D. 09/01 Asmanex 30 10/21 Hx Aerosol 220mcg/In 1Mon 1 po qd 493.00 Thananart, Metered Doses Teri Mendoza M.D. 03/05 Penicillin V 05/05 Hx Tablets 500mg 40tab qid for 10 s Teri Brown M.D.,[facility] 10/21 Advair Diskus 03/01 Hx Misc 250/50 3Mon 1 puff bid 493.00 Ko Teri Garcia M.D.,[facility] 10/21 Xopenex HFA 03/01 Hx Aerosol 45mcg/Act 1unit 2 puff four Brandy s times a day as Silvio, - diane Ray 07/26 Singulair 03/01 Hx Tablets 10mg 30tab 1 po qd 493.92 Blas Teri Velasquez M.D. 01/25 Omeprazole 03/01 Hx Capsules 20mg 30cap 1 po qd Teri Pedraza M.D. 01/11 Restoril 03/01 Hx Capsules 15mg 15cap po qhs prn Ko Teri Brantley M.D.,[facility] 09/01 Lexapro 03/01 Hx Tablets 10mg 30tab 1 po every day 300.02 Ko Teri Brantley M.D.,[facility] 10/21 Celexa Hx Tablets 10mg 90tab 1 po qd Unknown /0000 s - 09/30 Ativan 00 Hx Tablets 50tab prn Unknown /0000 s - 12/09 Hydrocodone-A Hx Tablets 5-325mg 8tabs 1 by mouth Unknown cetaminophen /0000 every 4-6 - hours prn. 01/25 Ibuprofen Hx Tablets 600mg 15tab 1 by mouth Unknown /0000 s three times a - day as needed 02/27 Oxycodone-Derrick Hx Tablets 5-325mg bee Stallworthinophen /0000 Teri Zeng MD 02/27 Medications Administered in Office Medication Date Status Form Strength Qnty SIG Indications Ordering Provider Technetium TC Administered Injection Davy Masterson 015 DO Jamilah LynnofosmAMANDEEP lowe Per Unit Dose Up To 40 Millicuries Depomedrol Administered Injection Veronica 80MG Monique Marcus M.D. Immunizations CPT Code Status Date Vaccine Lot # [id number] Given 02/15/2016 Influenza Virus Vaccine, Quadrivalent, Split [id number] Virus, [place] Use [address] Given 07/06/2014 Tdap - Tetanus/Diptheria/Acellular Pertussis [id number] Given 07/06/2014 Pneumococcal Conjugate Vaccine 13 Valent For [id number] Intramuscular Use 55592 Given 11/11/2013 Pneumonia Vaccine [id number] 42284 Given 03/05/2010 Influenza Virus 3Yrs & Over [id number] Refused 02/09/2013 Flu Vaccine Split Virus Preservative Free For Indiv 3Yr Older Vital Signs Date Vital Result Comment 05/25/2017 Weight 229.50 lb Heart Rate 94 /min BP Systolic 140 mmHg BP Diastolic 80 mmHg Body Temperature 98.5 F O2 % BldC Oximetry 96 % 02/25/2017 Height 66 inches 5'6" Weight 235.00 lb Heart Rate 88 /min BP Systolic Sitting 138 mmHg BP Diastolic Sitting 96 mmHg Body Temperature 98.0 F O2 % BldC Oximetry 97 % BMI (Body Mass Index) 37.9 kg/m2 12/24/2016 Height 67 inches 5'7" Weight 228.00 lb Heart Rate 92 /min BP Systolic Sitting 142 mmHg BP Diastolic Sitting 80 mmHg BP Systolic Recheck 95 mmHg BP Diastolic Recheck 75 mmHg Body Temperature 98.2 F O2 % BldC Oximetry 98 % BMI (Body Mass Index) 35.7 kg/m2 02/15/2016 Weight 230.25 lb Heart Rate 82 /min BP Systolic Sitting 138 mmHg BP Diastolic Sitting 80 mmHg Body Temperature 97.6 F O2 % BldC Oximetry 97 % 01/23/2016 Weight 227.25 lb Heart Rate 99 /min BP Systolic Sitting 138 mmHg BP Diastolic Sitting 80 mmHg Body Temperature 97.7 F O2 % BldC Oximetry 98 % 11/13/2015 Height 66 inches 5'6" Weight 226.50 lb Heart Rate 82 /min BP Systolic Sitting 140 mmHg BP Diastolic Sitting 106 mmHg Body Temperature 97.3 F O2 % BldC Oximetry 97 % BMI (Body Mass Index) 36.6 kg/m2 11/07/2015 Height 66 inches 5'6" Weight 226.12 lb Heart Rate 88 /min BP Systolic Sitting 136 mmHg BP Diastolic Sitting 96 mmHg Body Temperature 98.4 F O2 % BldC Oximetry 98 % BMI (Body Mass Index) 36.5 kg/m2 08/21/2015 Weight 228.00 lb Heart Rate 87 /min BP Systolic Sitting 149 mmHg BP Diastolic Sitting 91 mmHg Body Temperature 97.8 F 04/11/2015 Height 66 inches 5'6" Weight 226.00 lb Heart Rate 78 /min BP Systolic Sitting 128 mmHg left arm, large cuff BP Diastolic Sitting 76 mmHg left arm, large cuff BP Systolic Standing 132 mmHg left arm, large cuff BP Diastolic Standing 78 mmHg left arm, large cuff Respiratory Rate 16 /min BMI (Body Mass Index) 36.5 kg/m2 Ejection Fraction 55-60% 03/21/15 02/28/2015 Height 66 inches 5'6" Weight 217.25 lb Heart Rate 96 /min BP Systolic Sitting 106 mmHg BP Diastolic Sitting 74 mmHg Respiratory Rate 18 /min Body Temperature 96.9 F Pain Level 0 O2 % BldC Oximetry 98 % BMI (Body Mass Index) 35.1 kg/m2 12/18/2014 Height 66 inches 5'6" Weight 219.00 lb Heart Rate 86 /min BP Systolic Sitting 128 mmHg BP Diastolic Sitting 82 mmHg O2 % BldC Oximetry 98 % BMI (Body Mass Index) 35.3 kg/m2 07/06/2014 Height 66 inches 5'6" Weight 206.50 lb Heart Rate 80 /min BP Systolic Sitting 134 mmHg BP Diastolic Sitting 91 mmHg BMI (Body Mass Index) 33.3 kg/m2 05/31/2014 Height 66 inches 5'6" Weight 208.00 lb Heart Rate 72 /min BP Systolic Sitting 126 mmHg Ra large cuff BP Diastolic Sitting 80 mmHg Ra large cuff BP Systolic Standing 128 mmHg Ra BP Diastolic Standing 84 mmHg Ra Respiratory Rate 16 /min BMI (Body Mass Index) 33.6 kg/m2 03/30/2014 Height 66 inches 5'6" Weight 227.00 lb Heart Rate 80 /min BP Systolic Sitting 132 mmHg left arm, large cuff BP Diastolic Sitting 94 mmHg left arm, large cuff Respiratory Rate 20 /min O2 % BldC Oximetry 97 % Room air BMI (Body Mass Index) 36.6 kg/m2 Neck Circumference in inches 18 01/26/2014 Height 66 inches 5'6" Weight 213.00 lb Heart Rate 76 /min BP Systolic Sitting 132 mmHg BP Diastolic Sitting 78 mmHg Respiratory Rate 16 /min BMI (Body Mass Index) 34.4 kg/m2 Neck Circumference in inches 18 01/04/2014 Weight 217.50 lb Heart Rate 88 /min BP Systolic 148 mmHg Ra reg cuff BP Diastolic 96 mmHg Ra reg cuff BP Systolic Sitting 152 mmHg LA reg cuff BP Diastolic Sitting 102 mmHg LA reg cuff BP Systolic Standing 144 mmHg LA reg cuff BP Diastolic Standing 102 mmHg LA reg cuff Respiratory Rate 12 /min 11/11/2013 Weight 213.25 lb Heart Rate 104 /min 10 minutes later 84 BP Systolic Sitting 144 mmHg 10 min later 120/80 BP Diastolic Sitting 95 mmHg 10 min later 120/80 Body Temperature 97.8 F 08/26/2013 Weight 215.00 lb Heart Rate 80 /min BP Systolic Sitting 120 mmHg BP Diastolic Sitting 76 mmHg Body Temperature 98.6 F O2 % BldC Oximetry 98 % 02/09/2013 Height 65.75 inches 5'5.75" Weight 211.50 lb Heart Rate 76 /min BP Systolic Sitting 141 mmHg BP Diastolic Sitting 88 mmHg Body Temperature 96.8 F O2 % BldC Oximetry 96 % BMI (Body Mass Index) 34.4 kg/m2 01/05/2013 Height 65.75 inches 5'5.75" Weight 208.75 lb Heart Rate 85 /min BP Systolic Sitting 131 mmHg BP Diastolic Sitting 86 mmHg BMI (Body Mass Index) 33.9 kg/m2 07/14/2012 Height 65.75 inches 5'5.75" Weight 220.00 lb Heart Rate 94 /min BP Systolic Sitting 126 mmHg BP Diastolic Sitting 110 mmHg Body Temperature 98.0 F O2 % BldC Oximetry 98 % BMI (Body Mass Index) 35.8 kg/m2 03/24/2012 Height 65.75 inches 5'5.75" Weight 217.00 lb Heart Rate 81 /min BP Systolic Sitting 120 mmHg BP Diastolic Sitting 92 mmHg Body Temperature 97.4 F O2 % BldC Oximetry 98 % BMI (Body Mass Index) 35.3 kg/m2 12/24/2011 Height 65.75 inches 5'5.75" Weight 214.00 lb Heart Rate 68 /min BP Systolic Sitting 130 mmHg BP Diastolic Sitting 90 mmHg BMI (Body Mass Index) 34.8 kg/m2 12/10/2011 Height 65.75 inches 5'5.75" Weight 216.00 lb Heart Rate 76 /min BP Systolic Sitting 126 mmHg BP Diastolic Sitting 100 mmHg BMI (Body Mass Index) 35.1 kg/m2 10/01/2011 Height 65.75 inches 5'5.75" Weight 200.00 lb Heart Rate 74 /min BP Systolic Sitting 138 mmHg L BP Diastolic Sitting 92 mmHg L BMI (Body Mass Index) 32.5 kg/m2 09/18/2011 Height 65.75 inches 5'5.75" Weight 199.00 lb Heart Rate 96 /min BP Systolic Sitting 132 mmHg BP Diastolic Sitting 90 mmHg BMI (Body Mass Index) 32.4 kg/m2 09/09/2011 Weight 206.00 lb Heart Rate 76 /min BP Systolic Sitting 112 mmHg BP Diastolic Sitting 80 mmHg Body Temperature 96.9 F lt ear 07/17/2010 Heart Rate 72 /min BP Systolic 122 mmHg BP Diastolic 88 mmHg Respiratory Rate 16 /min Body Temperature 96.0 F 07/09/2010 Heart Rate 80 /min BP Systolic 120 mmHg BP Diastolic 90 mmHg 03/27/2010 Weight 198.00 lb Heart Rate 78 /min BP Systolic Sitting 128 mmHg BP Diastolic Sitting 82 mmHg 03/05/2010 Weight 202.00 lb Heart Rate 82 /min BP Systolic 130 mmHg BP Diastolic 84 mmHg 04/17/2009 Heart Rate 104 /min BP Systolic Sitting 112 mmHg BP Diastolic Sitting 76 mmHg Respiratory Rate 16 /min 04/12/2009 Weight 215.25 lb Heart Rate 90 /min BP Systolic Sitting 139 mmHg BP Diastolic Sitting 96 mmHg Body Temperature 97.7 F O2 % BldC Oximetry 97 % 01/30/2009 Weight 209.75 lb Heart Rate 88 /min BP Systolic Sitting 123 mmHg BP Diastolic Sitting 81 mmHg 01/29/2009 Weight 208.00 lb Heart Rate 108 /min BP Systolic Sitting 141 mmHg BP Diastolic Sitting 94 mmHg Body Temperature 97.3 F O2 % BldC Oximetry 98 % 01/22/2009 Heart Rate 97 /min BP Systolic Sitting 144 mmHg BP Diastolic Sitting 104 mmHg Body Temperature 97.9 F O2 % BldC Oximetry 96 % 01/11/2009 Weight 207.00 lb Heart Rate 78 /min BP Systolic Sitting 130 mmHg BP Diastolic Sitting 78 mmHg 10/11/2008 Weight 214.00 lb Heart Rate 62 /min BP Systolic Sitting 142 mmHg BP Diastolic Sitting 94 mmHg 09/01/2008 Height 66 inches 5'6" Weight 211.00 lb Heart Rate 92 /min BP Systolic Sitting 136 mmHg BP Diastolic Sitting 86 mmHg O2 % BldC Oximetry 96 % BMI (Body Mass Index) 34.1 kg/m2 04/28/2008 Height 66 inches 5'6" Weight 205.00 lb Heart Rate 86 /min BP Systolic Sitting 112 mmHg BP Diastolic Sitting 76 mmHg Body Temperature 97.8 F O2 % BldC Oximetry 96 % BMI (Body Mass Index) 33.1 kg/m2 03/17/2008 Height 66 inches 5'6" Weight 167.00 lb BMI (Body Mass Index) 27.0 kg/m2 03/13/2008 Height 66 inches 5'6" Weight 167.00 lb Heart Rate 92 /min BP Systolic Sitting 120 mmHg BP Diastolic Sitting 84 mmHg O2 % BldC Oximetry 96 % BMI (Body Mass Index) 27.0 kg/m2 01/05/2008 Height 66 inches 5'6" Weight 197.00 lb Heart Rate 80 /min BP Systolic Sitting 136 mmHg BP Diastolic Sitting 86 mmHg BMI (Body Mass Index) 31.8 kg/m2 12/28/2007 Height 66 inches 5'6" BP Systolic Sitting 120 mmHg BP Diastolic Sitting 78 mmHg 12/23/2007 Height 66 inches 5'6" Weight 197.00 lb Heart Rate 80 /min BP Systolic Sitting 130 mmHg BP Diastolic Sitting 74 mmHg BMI (Body Mass Index) 31.8 kg/m2 12/22/2007 Height 66 inches 5'6" 12/13/2007 Height 66 inches 5'6" Weight 211.00 lb has on 16 lbs of hardware on Heart Rate 76 /min BP Systolic Sitting 118 mmHg BP Diastolic Sitting 82 mmHg BMI (Body Mass Index) 34.1 kg/m2 10/22/2007 Height 66 inches 5'6" Weight 197.00 lb Heart Rate 80 /min BP Systolic Sitting 120 mmHg BP Diastolic Sitting 80 mmHg BMI (Body Mass Index) 31.8 kg/m2 03/01/2007 Height 66 inches 5'6" Weight 185.00 lb Heart Rate 70 /min BP Systolic Sitting 130 mmHg BP Diastolic Sitting 82 mmHg BMI (Body Mass Index) 29.9 kg/m2 Results Test Date Test Result H/L Range Note CBC Auto Diff 05/07/2017 White Blood Count 7.1 10^3/uL 3.5-10.8 Red Blood Count 5.35 10^6/uL 4.0-5.4 Hemoglobin 16.1 g/dL 14.0-18.0 Hematocrit 47 % 42-52 Mean Corpuscular Volume 87 fL 80-94 Mean Corpuscular Hemoglobin 30 pg 27-31 Mean Corpuscular HGB Conc 35 g/dL 31-36 Red Cell Distribution Width 14 % 10.5-15 Platelet Count 211 10^3/uL 150-450 Mean Platelet Volume 7 um3 Low 7.4-10.4 Abs Neutrophils 4.3 10^3/uL 1.5-7.7 Abs Lymphocytes 1.3 10^3/uL 1.0-4.8 Abs Monocytes 1.0 10^3/uL High 0-0.8 Abs Eosinophils 0.5 10^3/uL 0-0.6 Abs Basophils 0.1 10^3/uL 0-0.2 Abs Nucleated RBC 0 10^3/uL Granulocyte % 60.1 % 38-83 Lymphocyte % 18.8 % Low 25-47 Monocyte % 13.7 % High 1-9 Eosinophil % 6.6 % High 0-6 Basophil % 0.8 % 0-2 Nucleated Red Blood Cells % 0 Comp Metabolic Panel 05/07/2017 Sodium 132 mmol/L Low 133-145 Potassium 3.8 mmol/L 3.5-5.0 Chloride 101 mmol/L 101-111 Co2 Carbon Dioxide 21 mmol/L Low 22-32 Anion Gap 10 mmol/L 2-11 Glucose 87 mg/dL 70-100 Blood Urea Nitrogen 17 mg/dL 6-24 Creatinine 1.09 mg/dL 0.67-1.17 BUN/Creatinine Ratio 15.6 8-20 Calcium 9.6 mg/dL 8.6-10.3 Total Protein 7.0 g/dL 6.4-8.9 Albumin 4.5 g/dL 3.2-5.2 Globulin 2.5 g/dL 2-4 Albumin/Globulin Ratio 1.8 1-3 Total Bilirubin 0.60 mg/dL 0.2-1.0 Alkaline Phosphatase 70 U/L 34-104 Alt 123 U/L High 7-52 Ast 67 U/L High 13-39 Egfr Non- 73.5 >60 Egfr 94.5 >60 1 Laboratory test finding 05/07/2017 Hepatitis B Surface Ag Nonreactive Nonreactive 2 Hepatitis A IgG Antibody, S Negative 3 Hepatitis C Ab - Self Ref Nonreactive Nonreactive CBC Auto Diff 12/18/2016 White Blood Count 7.0 10^3/uL 3.5-10.8 Red Blood Count 5.22 10^6/uL 4.0-5.4 Hemoglobin 16.0 g/dL 14.0-18.0 Hematocrit 45 % 42-52 Mean Corpuscular Volume 87 fL 80-94 Mean Corpuscular Hemoglobin 31 pg 27-31 Mean Corpuscular HGB Conc 35 g/dL 31-36 Red Cell Distribution Width 13 % 10.5-15 Platelet Count 223 10^3/uL 150-450 Mean Platelet Volume 7 um3 Low 7.4-10.4 Abs Neutrophils 3.9 10^3/uL 1.5-7.7 Abs Lymphocytes 2.1 10^3/uL 1.0-4.8 Abs Monocytes 0.6 10^3/uL 0-0.8 Abs Eosinophils 0.4 10^3/uL 0-0.6 Abs Basophils 0 10^3/uL 0-0.2 Abs Nucleated RBC 0 10^3/uL Granulocyte % 55.6 % 38-83 Lymphocyte % 29.6 % 25-47 Monocyte % 8.3 % 1-9 Eosinophil % 6.0 % 0-6 Basophil % 0.5 % 0-2 Nucleated Red Blood Cells % 0 Lipid Profile (Trig/Chol/HDL) 12/18/2016 Triglycerides 154 mg/dL 4 Cholesterol 199 mg/dL 5 HDL Cholesterol 41.4 mg/dL 6 LDL Cholesterol 127 mg/dL 7 Laboratory test finding 12/18/2016 Ferritin 80.7 ng/mL 24-336 8 Laboratory test finding 12/18/2016 Vitamin B12 550 pg/mL 180-914 9 Iron & Iron Binding Capacity 12/18/2016 Iron 106 g/dL 50-212 Unsaturated Iron Binding 212 g/dL Total Iron Binding Capacity 318 g/dL 250-450 % Iron Saturation 33 % 15-55 Laboratory test 12/08/2016 Troponin-I (TnI) 0.01 ng/mL <0.04 finding Laboratory test 12/07/2016 D Dimer Quantitative < 200 ng/mL Less Than 230 10 finding Laboratory test 12/07/2016 TSH (Thyroid Stim 1.90 mcIU/mL 0.34-5.60 finding Horm) CKMB 12/07/2016 CKMB ng/mL 2.5 ng/mL 0.6-6.3 CBC Auto Diff 12/07/2016 White Blood Count 7.0 10^3/uL 3.5-10.8 Red Blood Count 5.16 10^6/uL 4.0-5.4 Hemoglobin 15.4 g/dL 14.0-18.0 Hematocrit 45 % 42-52 Mean Corpuscular Volume 87 fL 80-94 Mean Corpuscular Hemoglobin 30 pg 27-31 Mean Corpuscular HGB Conc 34 g/dL 31-36 Red Cell Distribution Width 14 % 10.5-15 Platelet Count 207 10^3/uL 150-450 Mean Platelet Volume 7 um3 Low 7.4-10.4 Abs Neutrophils 3.8 10^3/uL 1.5-7.7 Abs Lymphocytes 1.7 10^3/uL 1.0-4.8 Abs Monocytes 0.7 10^3/uL 0-0.8 Abs Eosinophils 0.5 10^3/uL 0-0.6 Abs Basophils 0.2 10^3/uL 0-0.2 Abs Nucleated RBC 0.01 10^3/uL Granulocyte % 54.3 % 38-83 Lymphocyte % 25.0 % 25-47 Monocyte % 10.5 % High 1-9 Eosinophil % 6.8 % High 0-6 Basophil % 3.4 % High 0-2 Nucleated Red Blood Cells % 0.1 Laboratory test finding 12/07/2016 Lactic Acid 0.8 mmol/L 0.5-2.0 11 B-Type Natriuretic Peptide BNP 9 pg/mL 12 Comp Metabolic Panel 12/07/2016 Sodium 135 mmol/L 133-145 Potassium 3.9 mmol/L 3.5-5.0 Chloride 104 mmol/L 101-111 Co2 Carbon Dioxide 25 mmol/L 22-32 Anion Gap 6 mmol/L 2-11 Glucose 93 mg/dL 70-100 Blood Urea Nitrogen 19 mg/dL 6-24 Creatinine 1.08 mg/dL 0.67-1.17 BUN/Creatinine Ratio 17.6 8-20 Calcium 8.9 mg/dL 8.6-10.3 Total Protein 6.8 g/dL 6.4-8.9 Albumin 4.3 g/dL 3.2-5.2 Globulin 2.5 g/dL 2-4 Albumin/Globulin Ratio 1.7 1-3 Total Bilirubin 0.60 mg/dL 0.2-1.0 Alkaline Phosphatase 72 U/L 34-104 Alt 40 U/L 7-52 Ast 23 U/L 13-39 Egfr Non- 74.6 >60 Egfr 96.0 >60 13 Laboratory test finding 12/07/2016 Troponin-I (TnI) 0.01 ng/mL <0.04 Laboratory test finding 08/23/2016 Troponin-I (TnI) 0.00 ng/mL <0.04 14 Laboratory test finding 08/23/2016 Lactic Acid 1.3 mmol/L 0.5-2.0 15 Comp Metabolic Panel 08/23/2016 Sodium 135 mmol/L 133-145 Potassium 4.0 mmol/L 3.5-5.0 Chloride 101 mmol/L 101-111 Co2 Carbon Dioxide 28 mmol/L 22-32 Anion Gap 6 mmol/L 2-11 Glucose 107 mg/dL High 70-100 Blood Urea Nitrogen 15 mg/dL 6-24 Creatinine 1.08 mg/dL 0.67-1.17 BUN/Creatinine Ratio 13.9 8-20 Calcium 9.6 mg/dL 8.6-10.3 Total Protein 6.9 g/dL 6.4-8.9 Albumin 4.3 g/dL 3.2-5.2 Globulin 2.6 g/dL 2-4 Albumin/Globulin Ratio 1.7 1-3 Total Bilirubin 0.60 mg/dL 0.2-1.0 Alkaline Phosphatase 79 U/L 34-104 Alt 48 U/L 7-52 Ast 28 U/L 13-39 Egfr Non- 74.6 >60 Egfr 96.0 >60 16 Laboratory test finding 08/23/2016 Troponin-I (TnI) 0.01 ng/mL <0.04 17 CBC Auto Diff 08/23/2016 White Blood Count 7.8 10^3/uL 3.5-10.8 Red Blood Count 5.34 10^6/uL 4.0-5.4 Hemoglobin 15.8 g/dL 14.0-18.0 Hematocrit 47 % 42-52 Mean Corpuscular Volume 88 fL 80-94 Mean Corpuscular Hemoglobin 30 pg 27-31 Mean Corpuscular HGB Conc 34 g/dL 31-36 Red Cell Distribution Width 15 % 10.5-15 Platelet Count 198 10^3/uL 150-450 Mean Platelet Volume 7 um3 Low 7.4-10.4 Abs Neutrophils 4.9 10^3/uL 1.5-7.7 Abs Lymphocytes 1.6 10^3/uL 1.0-4.8 Abs Monocytes 0.8 10^3/uL 0-0.8 Abs Eosinophils 0.4 10^3/uL 0-0.6 Abs Basophils 0.2 10^3/uL 0-0.2 Abs Nucleated RBC 0.04 10^3/uL Granulocyte % 62.2 % 38-83 Lymphocyte % 20.4 % Low 25-47 Monocyte % 9.6 % High 1-9 Eosinophil % 5.4 % 0-6 Basophil % 2.4 % High 0-2 Nucleated Red Blood Cells % 0.5 Laboratory test 08/23/2016 D Dimer Quantitative < 200 ng/mL Less Than 230 18 finding CBC Auto Diff 11/07/2015 White Blood Count 5.9 10^3/uL 3.5-10.8 Red Blood Count 4.27 10^6/uL 4.0-5.4 Hemoglobin 12.8 g/dL Low 14.0-18.0 Hematocrit 37 % Low 42-52 Mean Corpuscular Volume 86 fL 80-94 Mean Corpuscular Hemoglobin 30 pg 27-31 Mean Corpuscular HGB Conc 35 g/dL 31-36 Red Cell Distribution Width 14 % 10.5-15 Platelet Count 192 10^3/uL 150-450 Mean Platelet Volume 7 um3 Low 7.4-10.4 Abs Neutrophils 3.1 10^3/uL 1.5-7.7 Abs Lymphocytes 1.8 10^3/uL 1.0-4.8 Abs Monocytes 0.7 10^3/uL 0-0.8 Abs Eosinophils 0.3 10^3/uL 0-0.6 Abs Basophils 0.1 10^3/uL 0-0.2 Abs Nucleated RBC 0.03 10^3/uL Granulocyte % 53.1 % 38-83 Lymphocyte % 30.2 % 25-47 Monocyte % 11.5 % High 1-9 Eosinophil % 4.3 % 0-6 Basophil % 0.9 % 0-2 Nucleated Red Blood Cells % 0.6 Comp Metabolic Panel 11/07/2015 Sodium 133 mmol/L 133-145 Potassium 3.9 mmol/L 3.5-5.0 Chloride 100 mmol/L Low 101-111 Co2 Carbon Dioxide 28 mmol/L 22-32 Anion Gap 5 mmol/L 2-11 Glucose 76 mg/dL 70-100 Blood Urea Nitrogen 13 mg/dL 6-24 Creatinine 1.18 mg/dL High 0.67-1.17 BUN/Creatinine Ratio 11.0 8-20 Calcium 9.0 mg/dL 8.6-10.3 Total Protein 6.4 g/dL 6.4-8.9 Albumin 4.0 g/dL 3.2-5.2 Globulin 2.4 g/dL 2-4 Albumin/Globulin Ratio 1.7 1-3 Total Bilirubin 0.50 mg/dL 0.2-1.0 Alkaline Phosphatase 63 U/L 34-104 Alt 54 U/L High 7-52 Ast 28 U/L 13-39 Egfr Non- 67.7 >60 Egfr 87.1 >60 19 Laboratory test finding 11/07/2015 Amylase 18 U/L Low 29-103 Lipase 35 U/L 11.0-82.0 Laboratory test finding 02/24/2015 Troponin-I (TnI) 0.00 ng/mL <0.03 20 Comp Metabolic Panel 02/24/2015 Sodium 134 mmol/L 133-145 Potassium 3.6 mmol/L 3.5-5.0 Chloride 101 mmol/L 101-111 Co2 Carbon Dioxide 28 mmol/L 22-32 Anion Gap 5 mmol/L 2-11 Glucose 108 mg/dL High 70-100 Blood Urea Nitrogen 12 mg/dL 6-24 Creatinine 1.17 mg/dL 0.67-1.17 BUN/Creatinine Ratio 10.3 8-20 Calcium 9.5 mg/dL 8.6-10.3 Total Protein 6.8 g/dL 6.4-8.9 Albumin 4.5 g/dL 3.2-5.2 Globulin 2.3 g/dL 2-4 Albumin/Globulin Ratio 2.0 1-3 Total Bilirubin 0.70 mg/dL 0.2-1.0 Alkaline Phosphatase 90 U/L 34-104 Alt 53 U/L High 7-52 Ast 30 U/L 13-39 Egfr Non- 68.7 >60 Egfr 88.4 >60 21 CBC Auto Diff 02/24/2015 White Blood Count 6.8 10^3/uL 4.8-10.8 Red Blood Count 5.38 10^6/uL 4.0-5.4 Hemoglobin 16.3 g/dL 14.0-18.0 Hematocrit 48 % 42-52 Mean Corpuscular Volume 90 fL 80-94 Mean Corpuscular Hemoglobin 30 pg 27-31 Mean Corpuscular HGB Conc 34 g/dL 31-36 Red Cell Distribution Width 14 % 10.5-15 Platelet Count 216 10^3/uL 150-450 Mean Platelet Volume 8 um3 7.4-10.4 Abs Neutrophils 4.1 10^3/uL 1.5-7.7 Abs Lymphocytes 1.8 10^3/uL 1.0-4.8 Abs Monocytes 0.6 10^3/uL 0-0.8 Abs Eosinophils 0.2 10^3/uL 0-0.6 Abs Basophils 0 10^3/uL 0-0.2 Abs Nucleated RBC 0.01 10^3/uL Granulocyte % 60.4 % 38-83 Lymphocyte % 27.1 % 25-47 Monocyte % 9.0 % 1-9 Eosinophil % 3.0 % 0-6 Basophil % 0.5 % 0-2 Nucleated Red Blood Cells % 0.1 Comp Metabolic Panel 12/16/2014 Sodium 136 mmol/L 133-145 Potassium 3.5 mmol/L 3.5-5.0 Chloride 104 mmol/L 101-111 Co2 Carbon Dioxide 23 mmol/L 22-32 Anion Gap 9 mmol/L 2-11 Glucose 125 mg/dL High 70-100 Blood Urea Nitrogen 16 mg/dL 6-24 Creatinine 1.18 mg/dL High 0.67-1.17 BUN/Creatinine Ratio 13.6 8-20 Calcium 9.5 mg/dL 8.6-10.3 Total Protein 6.7 g/dL 6.4-8.9 Albumin 4.5 g/dL 3.2-5.2 Globulin 2.2 g/dL 2-4 Albumin/Globulin Ratio 2.0 1-3 Total Bilirubin 0.70 mg/dL 0.2-1.0 Alkaline Phosphatase 82 U/L 34-104 Alt 47 U/L 7-52 Ast 29 U/L 13-39 Egfr Non- 68.0 >60 Egfr 87.5 >60 22 CBC Auto Diff 12/16/2014 White Blood Count 9.5 10^3/uL 4.8-10.8 Red Blood Count 4.90 10^6/uL 4.0-5.4 Hemoglobin 15.5 g/dL 14.0-18.0 Hematocrit 44 % 42-52 Mean Corpuscular Volume 90 fL 80-94 Mean Corpuscular Hemoglobin 32 pg High 27-31 Mean Corpuscular HGB Conc 35 g/dL 31-36 Red Cell Distribution Width 14 % 10.5-15 Platelet Count 235 10^3/uL 150-450 Mean Platelet Volume 7 um3 Low 7.4-10.4 Abs Neutrophils 5.5 10^3/uL 1.5-7.7 Abs Lymphocytes 2.8 10^3/uL 1.0-4.8 Abs Monocytes 0.9 10^3/uL High 0-0.8 Abs Eosinophils 0.3 10^3/uL 0-0.6 Abs Basophils 0.1 10^3/uL 0-0.2 Abs Nucleated RBC 0 10^3/uL Granulocyte % 57.5 % 38-83 Lymphocyte % 29.2 % 25-47 Monocyte % 9.3 % High 1-9 Eosinophil % 3.3 % 0-6 Basophil % 0.7 % 0-2 Nucleated Red Blood Cells % 0 Urinalysis Profile 12/16/2014 Urine Color Yellow Urine Appearance Clear Urine Specific [place] 1.028 1.010-1.030 Urine pH 5.0 5-9 Urine Urobilinogen Negative Negative Urine Ketones Negative Negative Urine Protein Negative Negative Urine Leukocytes Negative Negative Urine Blood Negative Negative Urine Nitrite Negative Negative Urine Bilirubin Negative Negative Urine Glucose Negative Negative Laboratory test finding 12/16/2014 Lipase 40 U/L 11.0-82.0 C Reactive Protein 3.35 mg/L < 5.00 23 Lactic Acid 1.5 mmol/L 0.5-2.2 Laboratory test finding 03/24/2014 Troponin I 0.00 ng/mL <0.03 24 CBC Auto Diff 03/24/2014 White Blood Count 8.2 10^3/uL 4.8-10.8 Red Blood Count 5.12 10^6/uL 4.0-5.4 Hemoglobin 15.7 g/dL 14.0-18.0 Hematocrit 45 % 42-52 Mean Corpuscular Volume 88 fL 80-94 Mean Corpuscular Hemoglobin 31 pg 27-31 Mean Corpuscular HGB Conc 35 g/dL 31-36 Red Cell Distribution Width 14 % 10.5-15 Platelet Count 202 10^3/uL 150-450 Mean Platelet Volume 7 um3 Low 7.4-10.4 Abs Neutrophils 3.8 10^3/uL 1.5-7.7 Abs Lymphocytes 2.9 10^3/uL 1.0-4.8 Abs Monocytes 1.0 10^3/uL High 0-0.8 Abs Eosinophils 0.4 10^3/uL 0-0.6 Abs Basophils 0.1 10^3/uL 0-0.2 Abs Nucleated RBC 0 10^3/uL Granulocyte % 46.8 % 38-83 Lymphocyte % 35.0 % 25-47 Monocyte % 12.1 % High 1-9 Eosinophil % 5.3 % 0-6 Basophil % 0.8 % 0-2 Nucleated Red Blood Cells % 0 Inr/Protime 03/24/2014 Inr 0.96 0.85-1.06 Laboratory test finding 03/24/2014 Activated Partial 30.9 seconds 24.0- 36.1 Thrombo Time B Type Natriuretic Peptide < 8 pg/mL 25 Comp Metabolic Panel 03/24/2014 Sodium 136 mmol/L 133-145 Potassium 3.8 mmol/L 3.5-5.0 26 Chloride 103 mmol/L 101-111 Co2 Carbon Dioxide 28 mmol/L 22-32 Anion Gap 5 mmol/L 2-11 Glucose 94 mg/dL 70-100 Blood Urea Nitrogen 16 mg/dL 6-24 Creatinine 1.24 mg/dL High 0.67-1.17 BUN/Creatinine Ratio 12.9 8-20 Calcium 9.1 mg/dL 8.6-10.3 Total Protein 6.4 g/dL 6.4-8.9 Albumin 4.2 g/dL 3.2-5.2 Globulin 2.2 g/dL 2-4 Albumin/Globulin Ratio 1.9 1-3 Total Bilirubin 0.50 mg/dL 0.2-1.0 Alkaline Phosphatase 76 U/L 34-104 Alt 46 U/L 7-52 Ast 24 U/L 13-39 Egfr Non- 64.2 >60 Egfr 82.6 >60 27 Laboratory test finding 03/24/2014 Magnesium 2.2 mg/dL 1.9-2.7 Lipase 31 U/L 11.0-82.0 Troponin I 0.01 ng/mL <0.03 28 C Reactive Protein 4.02 mg/L < 5.00 29 Lactic Acid 0.9 mmol/L 0.5-2.2 D Dimer Quantitative < 200 ng/mL Less Than 230 30 Laboratory test finding 12/21/2013 Troponin I 0.01 ng/mL <0.03 31 Myoglobin 23.9 ng/mL 17.4-105.7 TSH (Thyroid Stimulating Horm) 3.62 IU/mL 0.34-5.60 C Reactive Protein 2.52 mg/L < 5.00 32 CKMB 12/21/2013 CKMB ng/mL 2.0 ng/mL 0.6-6.3 Laboratory test finding 12/21/2013 Magnesium 2.1 mg/dL 1.9-2.7 Lipase 34 U/L 11.0-82.0 Creatine Kinase 188 U/L 10-223 Comp Metabolic Panel 12/21/2013 Sodium 137 mmol/L 133-145 Potassium 3.6 mmol/L Low 3.7-5.6 Chloride 103 mmol/L 101-111 Co2 Carbon Dioxide 27 mmol/L 22-32 Anion Gap 7 mmol/L 2-11 Glucose 95 mg/dL 70-100 Blood Urea Nitrogen 15 mg/dL 6-24 Creatinine 1.21 mg/dL High 0.67-1.17 BUN/Creatinine Ratio 12.4 8-20 Calcium 9.1 mg/dL 8.6-10.3 Total Protein 6.5 g/dL 6.4-8.9 Albumin 4.3 g/dL 3.2-5.2 Globulin 2.2 g/dL 2-4 Albumin/Globulin Ratio 2.0 1-3 Total Bilirubin 0.70 mg/dL 0.2-1.0 Alkaline Phosphatase 77 U/L 34-104 Alt 45 U/L 7-52 Ast 27 U/L 13-39 Egfr Non- 66.4 >60 Egfr 85.4 >60 33 Laboratory test finding 12/21/2013 Activated Partial 29.7 seconds 24.0- 36.1 Thrombo Time D Dimer Quantitative < 200 ng/mL Less Than 230 34 Lactic Acid 1.2 mmol/L 0.5-2.2 B Type Natriuretic Peptide 20 pg/mL 35 Inr/Protime 12/21/2013 Inr 0.89 0.85-1.06 CBC Auto Diff 12/21/2013 White Blood Count 7.5 10^3/uL 4.8-10.8 Red Blood Count 5.03 10^6/uL 4.0-5.4 Hemoglobin 15.5 g/dL 14.0-18.0 Hematocrit 45 % 42-52 Mean Corpuscular Volume 89 fL 80-94 Mean Corpuscular Hemoglobin 31 pg 27-31 Mean Corpuscular HGB Conc 35 g/dL 31-36 Red Cell Distribution Width 14 % 10.5-15 Platelet Count 213 10^3/uL 150-450 Mean Platelet Volume 7 um3 Low 7.4-10.4 Abs Neutrophils 3.6 10^3/uL 1.5-7.7 Abs Lymphocytes 2.6 10^3/uL 1.0-4.8 Abs Monocytes 0.8 10^3/uL 0-0.8 Abs Eosinophils 0.4 10^3/uL 0-0.6 Abs Basophils 0 10^3/uL 0-0.2 Abs Nucleated RBC 0.01 10^3/uL Granulocyte % 48.4 % 38-83 Lymphocyte % 35.0 % 25-47 Monocyte % 10.9 % High 1-9 Eosinophil % 5.2 % 0-6 Basophil % 0.5 % 0-2 Nucleated Red Blood Cells % 0.1 Lipid Profile (Trig/Chol/HDL) 01/04/2013 Triglycerides 230 mg/dL High 40- 200 Cholesterol 194 mg/dL Less than 200 HDL Cholesterol 41 mg/dL 40-60 36 Cholesterol/HDL Ratio 4.7 Average High 1-4.44 LDL Cholesterol 107.0 High Less Than 100 37 Comp Metabolic Panel 01/04/2013 Sodium 138 mmol/L 133-145 Potassium 4.4 mmol/L 3.5-5.0 Chloride 104 mmol/L 101-111 Co2 Carbon Dioxide 29.0 mmol/L 22-32 Anion Gap 5.0 mmol/L 2-11 Glucose 105 mg/dL High 70-100 Blood Urea Nitrogen 10 mg/dL 6-24 Creatinine 1.00 mg/dL 0.50-1.40 BUN/Creatinine Ratio 10.0 8-20 Calcium 9.5 mg/dL 8.1-9.9 Total Protein 6.0 g/dL Low 6.2-8.1 Albumin 4.1 g/dL 3.6-5.4 Globulin 1.9 g/dL Low 2-4 Albumin/Globulin Ratio 2.2 1-3 Total Bilirubin 0.9 mg/dL 0.4-1.5 Alkaline Phosphatase 82 U/L 30-110 Alt 43 U/L 14-54 Ast 26 U/L 12-42 Egfr Non- 83.2 >60 Egfr 107.0 >60 38 Laboratory test finding 12/10/2011 Rheumatoid Factor < 15 IU/mL < 15 39 Lyme Disease Serology Negative Negative 40 Erythrocyte Sed Rate 5 MM/HR 0-15 Donna (Antinuclear Antibodies) 12/10/2011 Antinuclear AB NEGATIVE Negative Comp Metabolic Panel 12/10/2011 Sodium 135 mmol/L 135-145 Potassium 4.3 mmol/L 3.5-5.0 Chloride 102 mmol/L 101-111 Co2 (Carbon Dioxide) 29.0 mmol/L 22-32 Anion Gap 4.0 mmol/L 2-11 41 Glucose 73 mg/dL 70-100 BUN 11 mg/dL 6-24 Creatinine 1.1 mg/dL 0.50-1.40 One Over Creatinine 0.90 BUN/Creatinine Ratio 10.0 8-20 Calcium 9.2 mg/dL 8.1-9.9 Total Protein 6.4 GM/DL 6.2-8.1 Albumin 4.2 GM/DL 3.6-5.4 Globulin 2.2 GM/DL 2-4 Albumin/Globulin Ratio 1.9 1-3 Bilirubin Total 0.9 mg/dL 0.4-1.5 42 Alkaline Phosphatase 89 U/L 39-117 Alt (SGPT) 48 U/L 17-63 Ast (Sgot) 32 U/L 12-42 eGFR Non- 74.9 > 60 eGFR 96.3 > 60 43 Vad 12/10/2011 Vad Final Nonreactive Nonreactive 44 Syphilis Screen 12/10/2011 Syphilis IgG NON-REACTIVE Nonreactive 45 RPR TNP Nonreactive Pediatric/Maternal NO CBC Auto Diff 09/11/2011 White Blood Count 7.1 CUMM 4.8-10.8 Red Cell Count 5.28 CUMM 4.6-6.2 Hemoglobin 16.7 g/dL 14.0-18.0 Hematocrit 48 % 42-52 Mean Corpuscular Volume 91 um3 80-94 Mean Corpuscular Hemoglob 32 pg High 27-31 Mean Corpuscular HGB Cone 35 g/dL 32-36 Redcell Distribution WDTH 13 % 10.5-15 Platelet Count 197 CUMM 150-450 Mean Platelet Volume 7.9 um3 7.4-10.4 Gran % 74.6 % 38-83 Lymph % 15.2 % Low 25-47 Mononuclear % 8.0 % 1-9 Eosinophil % 2.0 % 0-6 Basophil % 0.2 % 0-2 Abs Lymphs 1.1 1.0-4.8 Abs Mononuclear 0.6 0-0.8 Absolute Neutrophil Count 5.3 1.5-7.7 Abs Eosinophils 0.1 0-0.6 Abs Basophils 0 0-0.2 Protime 09/11/2011 Inr 1.02 0.88-1.13 46 Protime 12.1 SEC 10.3-13.5 47 Comp Metabolic Panel 09/11/2011 Sodium 132 mmol/L Low 135-145 Potassium 5.0 mmol/L 3.5-5.0 Chloride 101 mmol/L 101-111 Co2 (Carbon Dioxide) 26.0 mmol/L 22-32 Anion Gap 5.0 mmol/L 2-11 48 Glucose 126 mg/dL High 70-100 BUN 9 mg/dL 6-24 Creatinine 1.2 mg/dL 0.50-1.40 One Over Creatinine 0.83 BUN/Creatinine Ratio 7.5 Low 8-20 Calcium 8.9 mg/dL 8.1-9.9 Total Protein 6.6 GM/DL 6.2-8.1 Albumin 4.3 GM/DL 3.6-5.4 Globulin 2.3 GM/DL 2-4 Albumin/Globulin Ratio 1.9 1-3 Bilirubin Total 1.4 mg/dL 0.4-1.5 49 Alkaline Phosphatase 90 U/L 39-117 Alt (SGPT) 57 U/L 17-63 Ast (Sgot) 34 U/L 12-42 eGFR Non- 67.8 > 60 eGFR 87.1 > 60 50 Laboratory test finding 09/11/2011 Troponin-I 0 NG/ML 0-0.06 51 C Reactive Protein < 0.5 mg/dL Less Than 0.5 Erythrocyte Sed Rate 2 MM/HR 0-15 Laboratory test finding 09/04/2011 Troponin-I 0 NG/ML 0-0.06 52 CPK (Creatine Kinase) 144 U/L 0-200 Comp Metabolic Panel 09/04/2011 Sodium 136 mmol/L 135-145 Potassium 4.3 mmol/L 3.5-5.0 Chloride 103 mmol/L 101-111 Co2 (Carbon Dioxide) 26.0 mmol/L 22-32 Anion Gap 7.0 mmol/L 2-11 53 Glucose 130 mg/dL High 70-100 BUN 10 mg/dL 6-24 Creatinine 1.0 mg/dL 0.50-1.40 One Over Creatinine 1.00 BUN/Creatinine Ratio 10.0 8-20 Calcium 9.2 mg/dL 8.1-9.9 Total Protein 6.7 GM/DL 6.2-8.1 Albumin 4.1 GM/DL 3.6-5.4 Globulin 2.6 GM/DL 2-4 Albumin/Globulin Ratio 1.6 1-3 Bilirubin Total 0.7 mg/dL 0.4-1.5 54 Alkaline Phosphatase 79 U/L 39-117 Alt (SGPT) 47 U/L 17-63 Ast (Sgot) 29 U/L 12-42 eGFR Non- 83.6 > 60 eGFR 107.5 > 60 55 CBC Auto Diff 09/04/2011 White Blood Count 6.2 CUMM 4.8-10.8 Red Cell Count 5.36 CUMM 4.6-6.2 Hemoglobin 17.1 g/dL 14.0-18.0 Hematocrit 48 % 42-52 Mean Corpuscular Volume 90 um3 80-94 Mean Corpuscular Hemoglob 32 pg High 27-31 Mean Corpuscular HGB Cone 35 g/dL 32-36 Redcell Distribution WDTH 13 % 10.5-15 Platelet Count 208 CUMM 150-450 Mean Platelet Volume 7.4 um3 7.4-10.4 Gran % 60.6 % 38-83 Lymph % 27.2 % 25-47 Mononuclear % 7.3 % 1-9 Eosinophil % 4.0 % 0-6 Basophil % 0.9 % 0-2 Abs Lymphs 1.7 1.0-4.8 Abs Mononuclear 0.4 0-0.8 Absolute Neutrophil Count 3.7 1.5-7.7 Abs Eosinophils 0.2 0-0.6 Abs Basophils 0.1 0-0.2 56 CBC No Diff 11/10/2010 White Blood Count 7.9 CUMM 4.8-10.8 Red Cell Count 5.30 CUMM 4.6-6.2 Hemoglobin 16.6 g/dL 14.0-18.0 Hematocrit 48 % 42-52 Mean Corpuscular Volume 91 um3 80-94 Mean Corpuscular Hemoglob 31 pg 27-31 Mean Corpuscular HGB Cone 34 g/dL 32-36 Redcell Distribution WDTH 14 % 10.5-15 Platelet Count 238 CUMM 150-450 Mean Platelet Volume 7.7 um3 7.4-10.4 Comp Metabolic Panel 11/10/2010 Sodium 138 mmol/L 135-145 Potassium 3.5 mmol/L 3.5-5.0 Chloride 105 mmol/L 101-111 Co2 (Carbon Dioxide) 26.0 mmol/L 22-32 Anion Gap 7.0 mmol/L 2-11 57 Glucose 95 mg/dL 70-100 BUN 11 mg/dL 6-24 Creatinine 0.97 mg/dL 0.50-1.40 One Over Creatinine 1.00 BUN/Creatinine Ratio 11.3 8-20 Calcium 9.2 mg/dL 8.1-9.9 Total Protein 7.8 GM/DL 6.2-8.1 Albumin 4.5 GM/DL 3.6-5.4 Globulin 3.3 GM/DL 2-4 Albumin/Globulin Ratio 1.4 1-3 Bilirubin Total 0.8 mg/dL 0.4-1.5 58 Alkaline Phosphatase 87 U/L 39-117 Alt (SGPT) 68 U/L High 17-63 Ast (Sgot) 42 U/L 12-42 eGFR Non- 87.1 > 60 eGFR 112.0 > 60 59 Laboratory test finding 11/10/2010 Troponin-I 0 NG/ML 0-0.06 60 Amylase 29 U/L 20-120 61 Lipase 37 U/L 22-51 Laboratory test finding 03/23/2010 Amylase 26 U/L 20-120 62 Lipase 22 U/L 22-51 Manual Differential 03/23/2010 Polysegmented Neutrophil 83 % 38-83 Lymphocyte 9 % Low 25-47 Monocyte 4 % 0-13 Eosinophil 2 % 0-6 Atypical Lymph 2 % 0-6 Absolute Neutrophil Count 6.6 RBC Morphology NORMAL CBC With Electronic Diff 03/23/2010 White Blood Count 8.0 CUMM 4.8-10.8 Red Cell Count 5.47 CUMM 4.6-6.2 Hemoglobin 17.1 g/dL 14.0-18.0 Hematocrit 49 % 42-52 Mean Corpuscular Volume 90 um3 80-94 Mean Corpuscular Hemoglob 31 pg 27-31 Mean Corpuscular HGB Cone 35 g/dL 32-36 Redcell Distribution WDTH 14 % 10.5-15 Platelet Count 228 CUMM 150-450 Mean Platelet Volume 6.5 um3 Low 7.4-10.4 63 Comp Metabolic Panel 03/23/2010 Sodium 143 mmol/L 135-145 Potassium 4.1 mmol/L 3.5-5.0 Chloride 108 mmol/L 101-111 Co2 (Carbon Dioxide) 26.0 mmol/L 22-32 Anion Gap 9.0 mmol/L 2-11 64 Glucose 110 mg/dL High 70-100 65 BUN 10 mg/dL 6-24 Creatinine 1.10 mg/dL 0.50-1.40 One Over Creatinine 0.90 BUN/Creatinine Ratio 9.1 8-20 Calcium 9.6 mg/dL 8.1-9.9 Total Protein 7.3 GM/DL 6.2-8.1 Albumin 4.8 GM/DL 3.6-5.4 Globulin 2.5 GM/DL 2-4 Albumin/Globulin Ratio 1.9 1-3 Bilirubin Total 1.5 mg/dL 0.4-1.5 66 Alkaline Phosphatase 73 U/L 39-117 Alt (SGPT) 40 U/L 17-63 Ast (Sgot) 30 U/L 12-42 eGFR Non- 80.1 > 60 eGFR 96.9 > 60 67 Urinalysis W/Microscopic 03/23/2010 Ua Color YELLOW Yellow Appearance-Urine CLEAR Clear Specific [place]-Ur 1.025 1.010-1.030 Esterase-Urine NEGATIVE Negative Nitrite NEGATIVE Negative [id number] NEGATIVE Negative Protein-Urine 1+ Negative PH-Urine 8.5 5-9 Blood-Urine NEGATIVE Negative Ketones-Urine TRACE Negative Bilirubin-Ur NEGATIVE Negative Glucose-Urine NEGATIVE Negative WBC-Urine 0-2 0-5 RBC-Urine 0-2 0-2 Bacteria-Urine TRACE None Laboratory test finding 01/19/2009 Troponin-I (TnI) 0.02 NG/ML 68 Amylase 33 U/L 30-125 Lipase 25 U/L 22-51 CMP Panel Stat 01/19/2009 Sodium 138 mmol/L 135-145 Potassium 4.6 mmol/L 3.5-5.0 Chloride 106 mmol/L 101-111 Co2 (Carbon Dioxide) 25.0 mmol/L 22-32 Anion Gap 7.0 mmol/L 2-11 69 Glucose 87 mg/dL 70-100 70 BUN 11 mg/dL 6-24 Creatinine 1.00 mg/dL 0.50-1.40 One Over Creatinine 1.00 BUN/Creatinine Ratio 11.0 8-20 Calcium 9.3 mg/dL 8.1-9.9 71 Total Protein 6.8 GM/DL 6.2-8.1 Albumin 4.4 GM/DL 3.6-5.4 Globulin 2.4 GM/DL 2-4 Albumin/Globulin Ratio 1.8 1-3 Bilirubin Total 0.9 mg/dL 0.4-1.5 72 Alkaline Phosphatase 80 U/L 39-117 Alt (SGPT) 32 U/L 17-63 Ast (Sgot) 23 U/L 12-42 eGFR Non- 90.4 > 60 eGFR 109.4 > 60 73 CBC With Electronic Diff Stat 01/19/2009 White Blood Count 8.0 CUMM 4.8- 10.8 Red Cell Count 5.28 CUMM 4.6-6.2 Hemoglobin 16.4 g/dL 14.0-18.0 Hematocrit 48 % 42-52 Mean Corpuscular Volume 90 um3 80-94 Mean Corpuscular Hemoglob 31 pg 27-31 Mean Corpuscular HGB Cone 34 g/dL 32-36 Redcell Distribution WDTH 14 % 10.5-15 Platelet Count 244 CUMM 150-450 Mean Platelet Volume 7.4 um3 7.4-10.4 Gran % 60.1 % 38-83 Lymph % 24.9 % Low 25-47 Mononuclear % 10.0 % High 1-9 Eosinophil % 4.5 % 0-6 Basophil % 0.5 % 0-2 Abs Lymphs 2.0 1.0-4.8 Abs Mononuclear 0.8 0-0.8 Absolute Neutrophil Count 4.8 1.5-7.7 Abs Eosinophils 0.4 0-0.6 Abs Basophils 0 0-0.2 Basic Metabolic Panel 11/22/2008 Sodium 136 mmol/L 135-145 Potassium 4.2 mmol/L 3.5-5.0 Chloride 104 mmol/L 101-111 Co2 (Carbon Dioxide) 24.0 mmol/L 22-32 Anion Gap 8.0 mmol/L 2-11 74 Glucose 131 mg/dL High 70-100 75 BUN 13 mg/dL 6-24 Creatinine 1.08 mg/dL 0.50-1.40 One Over Creatinine 0.90 BUN/Creatinine Ratio 12.0 8-20 Calcium 8.9 mg/dL 8.1-9.9 76 eGFR Non- 82.7 > 60 eGFR 100.1 > 60 77 CBC With Manual Diff 11/22/2008 White Blood Count 15.0 CUMM High 4.8-10.8 Red Cell Count 4.63 CUMM 4.6-6.2 Hemoglobin 14.4 g/dL 14.0-18.0 Hematocrit 42 % 42-52 Mean Corpuscular Volume 90 um3 80-94 Mean Corpuscular Hemoglob 31 pg 27-31 Mean Corpuscular HGB Cone 34 g/dL 32-36 Redcell Distribution WDTH 14 % 10.5-15 Platelet Count 227 CUMM 150-450 Mean Platelet Volume 7.2 um3 Low 7.4-10.4 Polysegmented Neutrophil 84 % High 38-83 Band Neutrophil 3 % 0-8 Lymphocyte 9 % Low 25-47 Monocyte 4 % 0-13 Absolute Neutrophil Count 13.0 RBC Morphology NORMAL CBC With Manual Diff 11/21/2008 White Blood Count 12.0 CUMM High 4.8-10.8 Red Cell Count 4.70 CUMM 4.6-6.2 Hemoglobin 14.6 g/dL 14.0-18.0 Hematocrit 42 % 42-52 Mean Corpuscular Volume 90 um3 80-94 Mean Corpuscular Hemoglob 31 pg 27-31 Mean Corpuscular HGB Cone 35 g/dL 32-36 Redcell Distribution WDTH 14 % 10.5-15 Platelet Count 203 CUMM 150-450 Mean Platelet Volume 6.8 um3 Low 7.4-10.4 Polysegmented Neutrophil 94 % High 38-83 Lymphocyte 4 % Low 25-47 Monocyte 2 % 0-13 Absolute Neutrophil Count 11.2 RBC Morphology NORMAL Basic Metabolic Panel 11/21/2008 Sodium 131 mmol/L Low 135-145 Potassium 4.4 mmol/L 3.5-5.0 Chloride 104 mmol/L 101-111 Co2 (Carbon Dioxide) 24.0 mmol/L 22-32 Anion Gap 3.0 mmol/L 2-11 78 Glucose 143 mg/dL High 70-100 79 BUN 12 mg/dL 6-24 Creatinine 1.20 mg/dL 0.50-1.40 One Over Creatinine 0.80 BUN/Creatinine Ratio 10.0 8-20 Calcium 8.7 mg/dL 8.1-9.9 80 eGFR Non- 73.2 > 60 eGFR 88.6 > 60 81 MRSA/Vre Screen 11/21/2008 MRSA/Vre Culture NFICU 82 Rapid Strep A 07/14/2008 Rapid Strep A [employer] literacy 83 <SEE NOTE> Laboratory test 07/14/2008 Throat-Beta Strep NF 84 finding Culture Basic Metabolic Panel 03/30/2008 Sodium 135 mmol/L 135-145 Stat Potassium 3.8 mmol/L 3.5-5.0 Chloride 103 mmol/L 101-111 Co2 (Carbon Dioxide) 26.0 mmol/L 22-32 Anion Gap 6.0 mmol/L 2-11 85 Glucose 102 mg/dL High 70-100 86 BUN 11 mg/dL 6-24 Creatinine 1.20 mg/dL 0.50-1.40 One Over Creatinine 0.80 BUN/Creatinine Ratio 9.2 8-20 Calcium 9.2 mg/dL 8.1-9.9 87 CBC With Electronic Diff Stat 03/30/2008 White Blood Count 8.4 CUMM 4.8- 10.8 Red Cell Count 5.28 CUMM 4.6-6.2 Hemoglobin 16.0 g/dL 14.0-18.0 Hematocrit 47 % 42-52 Mean Corpuscular Volume 88 um3 80-94 Mean Corpuscular Hemoglob 30 pg 27-31 Mean Corpuscular HGB Cone 34 g/dL 32-36 Redcell Distribution WDTH 13 % 10.5-15 Platelet Count 236 CUMM 150-450 Mean Platelet Volume 6.8 um3 Low 7.4-10.4 Gran % 54.6 % 38-83 Lymph % 27.5 % 25-47 Mononuclear % 11.1 % High 1-9 Eosinophil % 6.4 % High 0-6 Basophil % 0.4 % 0-2 Abs Lymphs 2.3 1.0-4.8 Abs Mononuclear 0.9 High 0-0.8 Absolute Neutrophil Count 4.7 1.5-7.7 Abs Eosinophils 0.5 0-0.6 Abs Basophils 0 0-0.2 Vitamin B12 And Folate Serum 03/17/2008 Vitamin B12 439 pg/mL 180-914 Folic Acid 11.3 NG/ML 2-16 Laboratory test finding 03/17/2008 TSH 2.11 MIU/ML 0.34-5.60 CBC With Manual Diff 03/17/2008 White Blood Count 7.0 CUMM 4.8-10.8 Red Cell Count 5.19 CUMM 4.6-6.2 Hemoglobin 15.9 g/dL 14.0-18.0 Hematocrit 46 % 42-52 Mean Corpuscular Volume 88 um3 80-94 Mean Corpuscular Hemoglob 31 pg 27-31 Mean Corpuscular HGB Cone 35 g/dL 32-36 Redcell Distribution WDTH 14 % 10.5-15 Platelet Count 247 CUMM 150-450 Mean Platelet Volume 7.4 um3 7.4-10.4 Polysegmented Neutrophil 50 % 38-83 Lymphocyte 32 % 25-47 Monocyte 6 % 0-13 Eosenophil 12 % High 0-6 Absolute Neutrophil Count 3.5 RBC Morphology NORMAL Manual Diff Comments (SEE NOTE) 88 Iron & Iron Binding Capacity 03/17/2008 Iron Total 126 g/dL 45-182 Unsaturated Iron Binding 161 g/dL Total Iron Binding Capacity 287 g/dL 250-450 % Iron Saturation 44 % 15-55 Thyroxine Free 03/17/2008 Free Thyroxine 0.82 NG/ML 0.61-1.24 89 DS3 10/19/2007 Amphetamines Urine Screen NONE DETECTED None Detect Barbituates Urine Screen NONE DETECTED None Detect Benzodiazepine Ur Screen NONE DETECTED None Detect Cannabinoid Urine Screen NONE DETECTED None Detect Cocaine Metabolites Urine NONE DETECTED None Detect Opiates Urine Screen NONE DETECTED None Detect PCP Urine Screen NONE DETECTED None Detect 90 Ua Stat 10/19/2007 Ua Color YELLOW Appearance-Urine CLEAR Specific [place]-Ur 1.019 1.010-1.030 Esterase-Urine NEGATIVE Negative Nitrite NEGATIVE Negative Htrjqzpucvfo-Ni-FCH NEGATIVE Negative Protein-Urine NEGATIVE Negative PH-Urine 6.5 5-9 Blood-Urine NEGATIVE Negative Ketones-Urine 1+ Negative Bilirubin-Ur NEGATIVE Negative Glucose-Urine NEGATIVE Negative Laboratory test finding 10/19/2007 Amylase 32 U/L 30-125 Lipase 19 U/L Low 22-51 Magnesium Stat 10/19/2007 Magnesium 2.0 mg/dL 1.7-2.6 P33S 10/19/2007 Sodium 137 mmol/L 135-145 Potassium 4.0 mmol/L 3.5-5.0 Chloride 105 mmol/L 101-111 Co2 (Carbon Dioxide) 28.0 mmol/L 22-32 Anion Gap 4.0 mmol/L 2-11 91 Glucose 95 mg/dL 70-105 BUN 15 mg/dL 6-24 Creatinine 1.2 mg/dL 0.5-1.4 One Over Creatinine 0.83 BUN/Creatinine Ratio 12.5 8-20 Calcium 9.0 mg/dL 8.1-9.9 92 Total Protein 7.1 GM/DL 6.2-8.1 Albumin 4.6 GM/DL 3.6-5.4 Globulin 2.5 GM/DL 2-4 Albumin/Globulin Ratio 1.8 1-3 Bilirubin Total 1.5 mg/dL 0.4-1.5 Alkaline Phosphatase 95 U/L 39-117 Alt (SGPT) 42 U/L 17-63 Ast (Sgot) 32 U/L 12-42 CBC With Manual Diff Stat 10/19/2007 White Blood Count 7.9 CUMM 4.8-10.8 Red Cell Count 5.69 CUMM 4.6-6.2 Hemoglobin 17.6 g/dL 14.0-18.0 Hematocrit 50 % 42-52 Mean Corpuscular Volume 87 um3 80-94 Mean Corpuscular Hemoglob 31 pg 27-31 Mean Corpuscular HGB Cone 36 g/dL 32-36 Redcell Distribution WDTH 14 % 10.5-15 Platelet Count 217 CUMM 150-450 Mean Platelet Volume 7.2 um3 Low 7.4-10.4 Polysegmented Neutrophil 84 % High 38-83 Band Neutrophil 1 % 0-8 Lymphocyte 8 % 5-47 Monocyte 6 % 0-13 Atypical Lymph 1 % 0-6 Absolute Neutrophil Count 6.7 RBC Morphology NORMAL Platelet Evaluation LARGE, OCC GIANT Laboratory test finding 10/13/2007 Troponin-I (TnI) 0.01 NG/ML 0-0.06 93 Basic Metabolic Panel Stat 10/13/2007 Sodium 140 mmol/L 135-145 Potassium 3.5 mmol/L 3.5-5.0 Chloride 106 mmol/L 101-111 Co2 (Carbon Dioxide) 29.0 mmol/L 22-32 Anion Gap 5.0 mmol/L 2-11 94 Glucose 84 mg/dL 70-105 BUN 10 mg/dL 6-24 Creatinine 1.1 mg/dL 0.5-1.4 One Over Creatinine 0.90 BUN/Creatinine Ratio 9.1 8-20 Calcium 8.8 mg/dL 8.1-9.9 95 CBC With Electronic Diff Stat 10/13/2007 White Blood Count 6.5 CUMM 4.8- 10.8 Red Cell Count 5.02 CUMM 4.6-6.2 Hemoglobin 15.4 g/dL 14.0-18.0 Hematocrit 44 % 42-52 Mean Corpuscular Volume 88 um3 80-94 Mean Corpuscular Hemoglob 31 pg 27-31 Mean Corpuscular HGB Cone 35 g/dL 32-36 Redcell Distribution WDTH 13 % 10.5-15 Platelet Count 238 CUMM 150-450 Mean Platelet Volume 7.4 um3 7.4-10.4 Gran % 47.4 % 38-83 Lymph % 37.1 % 20-45 Mononuclear % 10.6 % High 1-9 Eosinophil % 4.3 % 0-6 Basophil % 0.6 % 0-2 Abs Lymphs 2.4 1.0-4.8 Abs Mononuclear 0.7 0-0.8 Absolute Neutrophil Count 3.1 1.5-7.7 Abs Eosinophils 0.3 0-0.6 Abs Basophils 0 0-0.2 Laboratory test finding 01/20/2007 PTT (Aptt) 25.0 20.4-29.5 96 Basic Metabolic Panel 01/20/2007 One Over Creatinine 0.90 Anion Gap 8.0 mmol/L 2-11 97 BUN 16 mg/dL 6-24 Calcium 9.0 mg/dL 8.7-10.2 Chloride 104 mmol/L 101-111 Co2 (Carbon Dioxide) 28.0 mmol/L 22-32 Glucose 109 mg/dL High 70-105 Potassium 3.7 mmol/L 3.5-5.0 Sodium 140 mmol/L 135-145 BUN/Creatinine Ratio 14.5 8-20 Creatinine 1.1 mg/dL 0.5-1.4 CBC W/ Electronic Diff 01/20/2007 White Blood Count 6.6 CUMM 4.8-10.8 Abs Basophils 0 0-0.2 Abs Eosinophils 0.2 0-0.6 Absolute Neutrophil Count 3.6 1.5-7.7 Abs Lymphs 2.2 1.0-4.8 Abs Mononuclear 0.5 0-0.8 Basophil % 0.6 % 0-2 Hematocrit 48 % 42-52 Hemoglobin 16.4 g/dL 14.0-18.0 Eosinophil % 2.4 % 0-6 Gran % 54.6 % 38-83 Lymph % 34.1 % 20-45 Mean Corpuscular HGB Cone 34 g/dL 32-36 Mean Corpuscular Hemoglob 30 pg 27-31 Mean Corpuscular Volume 88 um3 80-94 Mean Platelet Volume 7.0 um3 Low 7.4-10.4 Mononuclear % 8.3 % 1-9 Platelet Count 244 CUMM 150-450 Red Cell Count 5.48 CUMM 4.6-6.2 Redcell Distribution WDTH 14 % 10.5-15 Protime 01/20/2007 Inr 1.05 98 Protime 12.3 10.9-13.1 1 Because ethnic data is not always readily available, this report includes an eGFR for both -Americans and non- Americans. The National Kidney Disease Education Program (NKDEP) does not endorse the use of the MDRD equation for patients that are not between the ages of 18 and 70, are , have extremes of body size, muscle mass, or nutritional status, or are non- or non-. According to the National Kidney Foundation, irrespective of diagnosis, the stage of the disease is based on the level of kidney function: Stage Description GFR(mL/min/1.73 m(2)) 1 Kidney damage with normal or decreased GFR 90 2 Kidney damage with mild decrease in GFR 60-89 3 Moderate decrease in GFR 30-59 4 Severe decrease in GFR 15-29 5 Kidney failure <15 (or dialysis) 2 Comment: Has been collected 3 Result indicates no past exposure or immunity to hepatitis A infection. REFERENCE VALUE Unvaccinated: Negative Vaccinated: Positive Test Performed by: [facility] [address] , [place] [address] 4 Desirable <150 Borderline high 150-199 High 200-499 Very High >500 5 Desirable <200 Borderline high 200-239 High >239 6 Low <40 Desirable: 40-60 High: >60 7 Desirable: <100 mg/dL Near Optimal: 100-129 mg/dL Borderline High: 130-159 mg/dL High: 160-189 mg/dL Very High: >189 mg/dL 8 FASTING 10 HOUR 9 Normal Range 180 to 914 Indeterminate Range 145 to 180 Deficient Range <145 10 Please note: The following may produce a false positive D Dimer test: - Rheumatoid factor greater than 60 IU/ml - Plasma hemoglobin greater than 0.05 gm/dl - Bilirubin greater than 50 mg/dl - Lipids greater than 1000 mg/dl - FDP greater than 20 ug/ml 11 [facility] Severe Sepsis and Septic Shock Management Bundle Measure requires all lactic acids initially measuring >2.0 mmol/L be repeated. 12 >100 to <200 pg/mL: likely compensated congestive heart failure (CHF) 200 to 400 pg/mL: likely moderate CHF >400 pg/mL: likely moderate to severe CHF 13 Because ethnic data is not always readily available, this report includes an eGFR for both -Americans and non- Americans. The National Kidney Disease Education Program (NKDEP) does not endorse the use of the MDRD equation for patients that are not between the ages of 18 and 70, are , have extremes of body size, muscle mass, or nutritional status, or are non- or non-. According to the National Kidney Foundation, irrespective of diagnosis, the stage of the disease is based on the level of kidney function: Stage Description GFR(mL/min/1.73 m(2)) 1 Kidney damage with normal or decreased GFR 90 2 Kidney damage with mild decrease in GFR 60-89 3 Moderate decrease in GFR 30-59 4 Severe decrease in GFR 15-29 5 Kidney failure <15 (or dialysis) 14 99th percentile=0.04 ng/mL Troponin results at [facility] and [facility] are not interchangeable. 15 [facility] Severe Sepsis and Septic Shock Management Bundle Measure requires all lactic acids initially measuring >2.0 mmol/L be repeated. 16 Because ethnic data is not always readily available, this report includes an eGFR for both -Americans and non- Americans. The National Kidney Disease Education Program (NKDEP) does not endorse the use of the MDRD equation for patients that are not between the ages of 18 and 70, are , have extremes of body size, muscle mass, or nutritional status, or are non- or non-. According to the National Kidney Foundation, irrespective of diagnosis, the stage of the disease is based on the level of kidney function: Stage Description GFR(mL/min/1.73 m(2)) 1 Kidney damage with normal or decreased GFR 90 2 Kidney damage with mild decrease in GFR 60-89 3 Moderate decrease in GFR 30-59 4 Severe decrease in GFR 15-29 5 Kidney failure <15 (or dialysis) 17 99th percentile=0.04 ng/mL Troponin results at [facility] and [facility] are not interchangeable. 18 Please note: The following may produce a false positive D Dimer test: - Rheumatoid factor greater than 60 IU/ml - Plasma hemoglobin greater than 0.05 gm/dl - Bilirubin greater than 50 mg/dl - Lipids greater than 1000 mg/dl - FDP greater than 20 ug/ml 19 Because ethnic data is not always readily available, this report includes an eGFR for both -Americans and non- Americans. The National Kidney Disease Education Program (NKDEP) does not endorse the use of the MDRD equation for patients that are not between the ages of 18 and 70, are , have extremes of body size, muscle mass, or nutritional status, or are non- or non-. According to the National Kidney Foundation, irrespective of diagnosis, the stage of the disease is based on the level of kidney function: Stage Description GFR(mL/min/1.73 m(2)) 1 Kidney damage with normal or decreased GFR 90 2 Kidney damage with mild decrease in GFR 60-89 3 Moderate decrease in GFR 30-59 4 Severe decrease in GFR 15-29 5 Kidney failure <15 (or dialysis) 20 Reference Range and Interpretation: TnI (ng/mL) Interpretation Less Than 0.03 ng/mL Not supportive of diagnosis of [place] 0.03 - 0.50 ng/mL Indeterminate: suggest serial studies if clinically indicated. Greater than 0.5 ng/mL Consistent with diagnosis of [place] 21 Because ethnic data is not always readily available, this report includes an eGFR for both -Americans and non- Americans. The National Kidney Disease Education Program (NKDEP) does not endorse the use of the MDRD equation for patients that are not between the ages of 18 and 70, are , have extremes of body size, muscle mass, or nutritional status, or are non- or non-. According to the National Kidney Foundation, irrespective of diagnosis, the stage of the disease is based on the level of kidney function: Stage Description GFR(mL/min/1.73 m(2)) 1 Kidney damage with normal or decreased GFR 90 2 Kidney damage with mild decrease in GFR 60-89 3 Moderate decrease in GFR 30-59 4 Severe decrease in GFR 15-29 5 Kidney failure <15 (or dialysis) 22 Because ethnic data is not always readily available, this report includes an eGFR for both -Americans and non- Americans. The National Kidney Disease Education Program (NKDEP) does not endorse the use of the MDRD equation for patients that are not between the ages of 18 and 70, are , have extremes of body size, muscle mass, or nutritional status, or are non- or non-. According to the National Kidney Foundation, irrespective of diagnosis, the stage of the disease is based on the level of kidney function: Stage Description GFR(mL/min/1.73 m(2)) 1 Kidney damage with normal or decreased GFR 90 2 Kidney damage with mild decrease in GFR 60-89 3 Moderate decrease in GFR 30-59 4 Severe decrease in GFR 15-29 5 Kidney failure <15 (or dialysis) 23 Acute inflammation: >10.00 24 Reference Range and Interpretation: TnI (ng/mL) Interpretation Less Than 0.03 ng/mL Not supportive of diagnosis of MO 0.03 - 0.50 ng/mL Indeterminate: suggest serial studies if clinically indicated. Greater than 0.5 ng/mL Consistent with diagnosis of [place] 25 >100 to <200 pg/mL: likely compensated congestive heart failure (CHF) 200 to 400 pg/mL: likely moderate CHF >400 pg/mL: likely moderate to severe CHF [place] [facility] 26 Potassium reference range changed effective 02/26/14 27 Because ethnic data is not always readily available, this report includes an eGFR for both -Americans and non- Americans. The National Kidney Disease Education Program (NKDEP) does not endorse the use of the MDRD equation for patients that are not between the ages of 18 and 70, are , have extremes of body size, muscle mass, or nutritional status, or are non- or non-. According to the National Kidney Foundation, irrespective of diagnosis, the stage of the disease is based on the level of kidney function: Stage Description GFR(mL/min/1.73 m(2)) 1 Kidney damage with normal or decreased GFR 90 2 Kidney damage with mild decrease in GFR 60-89 3 Moderate decrease in GFR 30-59 4 Severe decrease in GFR 15-29 5 Kidney failure <15 (or dialysis) 28 Reference Range and Interpretation: TnI (ng/mL) Interpretation Less Than 0.03 ng/mL Not supportive of diagnosis of MO 0.03 - 0.50 ng/mL Indeterminate: suggest serial studies if clinically indicated. Greater than 0.5 ng/mL Consistent with diagnosis of [place] 29 Acute inflammation: >10.00 30 Please note: The following may produce a false positive D Dimer test: - Rheumatoid factor greater than 60 IU/ml - Plasma hemoglobin greater than 0.05 gm/dl - Bilirubin greater than 50 mg/dl - Lipids greater than 1000 mg/dl - FDP greater than 20 ug/ml 31 Reference Range and Interpretation: TnI (ng/mL) Interpretation Less Than 0.03 ng/mL Not supportive of diagnosis of MO 0.03 - 0.50 ng/mL Indeterminate: suggest serial studies if clinically indicated. Greater than 0.5 ng/mL Consistent with diagnosis of [place] 32 Acute inflammation: >10.00 33 Because ethnic data is not always readily available, this report includes an eGFR for both -Americans and non- Americans. The National Kidney Disease Education Program (NKDEP) does not endorse the use of the MDRD equation for patients that are not between the ages of 18 and 70, are , have extremes of body size, muscle mass, or nutritional status, or are non- or non-. According to the National Kidney Foundation, irrespective of diagnosis, the stage of the disease is based on the level of kidney function: Stage Description GFR(mL/min/1.73 m(2)) 1 Kidney damage with normal or decreased GFR 90 2 Kidney damage with mild decrease in GFR 60-89 3 Moderate decrease in GFR 30-59 4 Severe decrease in GFR 15-29 5 Kidney failure <15 (or dialysis) 34 Please note: The following may produce a false positive D Dimer test: - Rheumatoid factor greater than 60 IU/ml - Plasma hemoglobin greater than 0.05 gm/dl - Bilirubin greater than 50 mg/dl - Lipids greater than 1000 mg/dl - FDP greater than 20 ug/ml 35 >100 to <200 pg/mL: likely compensated congestive heart failure (CHF) 200 to 400 pg/mL: likely moderate CHF >400 pg/mL: likely moderate to severe CHF [place] [facility] 36 HDL Interpretation: Undesirable: High Risk: Less than 40 mg/dL Desirable: Low Risk: Greater than 60 mg/dL 37 LDL Interpretation: Low Risk Optimal Level: LDL Less than 100 mg/dL Near or Above Optimal: LDL 100-129 mg/dL Borderline High Risk: LDL 130-159 mg/dL High Risk: LDL 160-189 mg/dL Very High Risk: LDL Greater than 189 mg/dL 38 Because ethnic data is not always readily available, this report includes an eGFR for both -Americans and non- Americans. The National Kidney Disease Education Program (NKDEP) does not endorse the use of the MDRD equation for patients that are not between the ages of 18 and 70, are , have extremes of body size, muscle mass, or nutritional status, or are non- or non-. According to the National Kidney Foundation, irrespective of diagnosis, the stage of the disease is based on the level of kidney function: Stage Description GFR(mL/min/1.73 m(2)) 1 Kidney damage with normal or decreased GFR 90 2 Kidney damage with mild decrease in GFR 60-89 3 Moderate decrease in GFR 30-59 4 Severe decrease in GFR 15-29 5 Kidney failure <15 (or dialysis) 39 Test Performed by: [address] [address] District Manager [employer]: Reddy Palmer III, M.D. 40 Serologic response to B. burgdorferi infection is not detected, but cannot rule out early infection during which low or undetectable antibody levels to B. burgdorferi may be present. If clinically indicated, a new serum specimen should be submitted in 7-14 days. Test Performed by: [facility] [place] [address] District Manager [employer]: Reddy Palmer III, M.D. 41 Anion gap measurement may be of limited value in the presence of any alkalosis, especially in a combined acid base disorder. . 42 A metabolite of Naproxen, O-desmethylnaproxen, has been shown to interfere with the Jendrassik-Lore method for measuring total bilirubin. Samples from patients who have taken Naproxen have shown spurious elevation in total bilirubin levels. 43 Because ethnic data is not always readily available, this report includes an eGFR for both -Americans and non- Americans. The National Kidney Disease Education Program (NKDEP) does not endorse the use of the MDRD equation for patients that are not between the ages of 18 and 70, are , have extremes of body size, muscle mass, or nutritional status, or are non- or non-. According to the National Kidney Foundation, irrespective of diagnosis, the stage of the disease is based on the level of kidney function: Stage Description GFR(mL/min/1.73 m(2)) 1 Kidney damage with normal or decreased GFR 90 2 Kidney damage with mild decrease in GFR 60-89 3 Moderate decrease in GFR 30-59 4 Severe decrease in GFR 15-29 5 Kidney failure <15 (or dialysis) 44 It is recognized that currently available assays for the detection of antibodies to HIV-1 and/or HIV-2 may not detect all infected individuals. HIV antibodies may be undetectable in some stages of the infection and in some clinical conditions. The performance of this assay has not been established for populations of infants or children. Assayed by Chemiluminescence Microparticle Immunoassay on the [employer] Centaur CP. Values obtained with different methods or kits cannot be used interchangeably.The diagnostic specificity of the [employer] Centaur 1/O/2 Enhanced assay in the low risk population was 99.90% (6052/6058) with a 95% confidence interval of 99.78 to 99.96%. 45 Warning: A positive result is not useful for establishing a diagnosis of syphilis. In most situations, such a result may reflect a prior treated infection; a negative result can exclude a diagnosis of syphilis except for incubating or early primary disease. 46 Recommended INR for Patients on Oral Anticoagulants Prophylaxis 2.0 - 3.0 Treatment of thrombosis 2.0 - 3.0 Prevention of embolism 2.0 - 3.0 Prevention of embolism from prosthetic heart valves 2.5 - 3.5 47 DIAGNOSIS,TREATMENT,AND THERAPY MUST BE BASED ON THE INR VALUE ALONE. 48 Anion gap measurement may be of limited value in the presence of any alkalosis, especially in a combined acid base disorder. . 49 A metabolite of Naproxen, O-desmethylnaproxen, has been shown to interfere with the Jendrassik-Lore method for measuring total bilirubin. Samples from patients who have taken Naproxen have shown spurious elevation in total bilirubin levels. 50 Because ethnic data is not always readily available, this report includes an eGFR for both -Americans and non- Americans. The National Kidney Disease Education Program (NKDEP) does not endorse the use of the MDRD equation for patients that are not between the ages of 18 and 70, are , have extremes of body size, muscle mass, or nutritional status, or are non- or non-. According to the National Kidney Foundation, irrespective of diagnosis, the stage of the disease is based on the level of kidney function: Stage Description GFR(mL/min/1.73 m(2)) 1 Kidney damage with normal or decreased GFR 90 2 Kidney damage with mild decrease in GFR 60-89 3 Moderate decrease in GFR 30-59 4 Severe decrease in GFR 15-29 5 Kidney failure <15 (or dialysis) 51 New Reference Range and Interpretation effective 01/28/2002 TnI (ng/ml) INTERPRETATION Less Than 0.06 ng/mL NOT SUPPORTIVE OF DIAGNOSIS OF MO 0.06 - 0.50 ng/ml INDETERMINATE: SUGGEST SERIAL STUDIES IF CLINICALLY INDICATED. Greater than 0.5 ng/mL CONSISTENT WITH DIAGNOSIS OF MO . 52 New Reference Range and Interpretation effective 01/28/2002 TnI (ng/ml) INTERPRETATION Less Than 0.06 ng/mL NOT SUPPORTIVE OF DIAGNOSIS OF MO 0.06 - 0.50 ng/ml INDETERMINATE: SUGGEST SERIAL STUDIES IF CLINICALLY INDICATED. Greater than 0.5 ng/mL CONSISTENT WITH DIAGNOSIS OF [place] . 53 Anion gap measurement may be of limited value in the presence of any alkalosis, especially in a combined acid base disorder. . 54 A metabolite of Naproxen, O-desmethylnaproxen, has been shown to interfere with the Jendrassik-Lore method for measuring total bilirubin. Samples from patients who have taken Naproxen have shown spurious elevation in total bilirubin levels. 55 Because ethnic data is not always readily available, this report includes an eGFR for both -Americans and non- Americans. The National Kidney Disease Education Program (NKDEP) does not endorse the use of the MDRD equation for patients that are not between the ages of 18 and 70, are , have extremes of body size, muscle mass, or nutritional status, or are non- or non-. According to the National Kidney Foundation, irrespective of diagnosis, the stage of the disease is based on the level of kidney function: Stage Description GFR(mL/min/1.73 m(2)) 1 Kidney damage with normal or decreased GFR 90 2 Kidney damage with mild decrease in GFR 60-89 3 Moderate decrease in GFR 30-59 4 Severe decrease in GFR 15-29 5 Kidney failure <15 (or dialysis) 56 H H Check Failed 57 Anion gap measurement may be of limited value in the presence of any alkalosis, especially in a combined acid base disorder. . 58 A metabolite of Naproxen, O-desmethylnaproxen, has been shown to interfere with the Jendrassik-[place] method for measuring total bilirubin. Samples from patients who have taken Naproxen have shown spurious elevation in total bilirubin levels. 59 Because ethnic data is not always readily available, this report includes an eGFR for both -Americans and non- Americans. The National Kidney Disease Education Program (NKDEP) does not endorse the use of the MDRD equation for patients that are not between the ages of 18 and 70, are , have extremes of body size, muscle mass, or nutritional status, or are non- or non-. According to the National Kidney Foundation, irrespective of diagnosis, the stage of the disease is based on the level of kidney function: Stage Description GFR(mL/min/1.73 m(2)) 1 Kidney damage with normal or decreased GFR 90 2 Kidney damage with mild decrease in GFR 60-89 3 Moderate decrease in GFR 30-59 4 Severe decrease in GFR 15-29 5 Kidney failure <15 (or dialysis) 60 New Reference Range and Interpretation effective 01/28/2002 TnI (ng/ml) INTERPRETATION Less Than 0.06 ng/mL NOT SUPPORTIVE OF DIAGNOSIS OF MO 0.06 - 0.50 ng/ml INDETERMINATE: SUGGEST SERIAL STUDIES IF CLINICALLY INDICATED. Greater than 0.5 ng/mL CONSISTENT WITH DIAGNOSIS OF [place] . 61 PLEASE NOTE NEW REFERENCE RANGE. 62 PLEASE NOTE NEW REFERENCE RANGE. 63 Neutrophilia % Lymphopenia % 64 Anion gap measurement may be of limited value in the presence of any alkalosis, especially in a combined acid base disorder. . 65 Note change in reference range as of 12/16/07. The change was based on recommendations from the [place] [employer]. 66 A metabolite of Naproxen, O-desmethylnaproxen, has been shown to interfere with the Jendrassik-Lore method for measuring total bilirubin. Samples from patients who have taken Naproxen have shown spurious elevation in total bilirubin levels. 67 Because ethnic data is not always readily available, this report includes an eGFR for both -Americans and non- Americans. The National Kidney Disease Education Program (NKDEP) does not endorse the use of the MDRD equation for patients that are not between the ages of 18 and 70, are , have extremes of body size, muscle mass, or nutritional status, or are non- or non-. According to the National Kidney Foundation, irrespective of diagnosis, the stage of the disease is based on the level of kidney function: Stage Description GFR(mL/min/1.73 m(2)) 1 Kidney damage with normal or decreased GFR 90 2 Kidney damage with mild decrease in GFR 60-89 3 Moderate decrease in GFR 30-59 4 Severe decrease in GFR 15-29 5 Kidney failure <15 (or dialysis) 68 New Reference Range and Interpretation effective 01/28/2002 TnI (ng/ml) INTERPRETATION Less Than 0.06 ng/mL NOT SUPPORTIVE OF DIAGNOSIS OF [place] 0.06 - 0.50 ng/ml INDETERMINATE: SUGGEST SERIAL STUDIES IF CLINICALLY INDICATED. Greater than 0.5 ng/mL CONSISTENT WITH DIAGNOSIS OF [place] . 69 Anion gap measurement may be of limited value in the presence of any alkalosis, especially in a combined acid base disorder. . 70 Note change in reference range as of 12/16/07. The change was based on recommendations from the [place] [employer]. 71 Please note change in reference range effective 07 . 72 A metabolite of Naproxen, O-desmethylnaproxen, has been shown to interfere with the Jendrassik-Lore method for measuring total bilirubin. Samples from patients who have taken Naproxen have shown spurious elevation in total bilirubin levels. 73 Because ethnic data is not always readily available, this report includes an eGFR for both -Americans and non- Americans. The National Kidney Disease Education Program (NKDEP) does not endorse the use of the MDRD equation for patients that are not between the ages of 18 and 70, are , have extremes of body size, muscle mass, or nutritional status, or are non- or non-. According to the National Kidney Foundation, irrespective of diagnosis, the stage of the disease is based on the level of kidney function: Stage Description GFR(mL/min/1.73 m(2)) 1 Kidney damage with normal or decreased GFR 90 2 Kidney damage with mild decrease in GFR 60-89 3 Moderate decrease in GFR 30-59 4 Severe decrease in GFR 15-29 5 Kidney failure <15 (or dialysis) 74 Anion gap measurement may be of limited value in the presence of any alkalosis, especially in a combined acid base disorder. . 75 Note change in reference range as of 12/16/07. The change was based on recommendations from the [place] [employer]. 76 Please note change in reference range effective 07 . 77 Because ethnic data is not always readily available, this report includes an eGFR for both -Americans and non- Americans. The National Kidney Disease Education Program (NKDEP) does not endorse the use of the MDRD equation for patients that are not between the ages of 18 and 70, are , have extremes of body size, muscle mass, or nutritional status, or are non- or non-. According to the National Kidney Foundation, irrespective of diagnosis, the stage of the disease is based on the level of kidney function: Stage Description GFR(mL/min/1.73 m(2)) 1 Kidney damage with normal or decreased GFR 90 2 Kidney damage with mild decrease in GFR 60-89 3 Moderate decrease in GFR 30-59 4 Severe decrease in GFR 15-29 5 Kidney failure <15 (or dialysis) 78 Anion gap measurement may be of limited value in the presence of any alkalosis, especially in a combined acid base disorder. . 79 Note change in reference range as of 12/16/07. The change was based on recommendations from the [place] [employer]. 80 Please note change in reference range effective 07 . 81 Because ethnic data is not always readily available, this report includes an eGFR for both -Americans and non- Americans. The National Kidney Disease Education Program (NKDEP) does not endorse the use of the MDRD equation for patients that are not between the ages of 18 and 70, are , have extremes of body size, muscle mass, or nutritional status, or are non- or non-. According to the National Kidney Foundation, irrespective of diagnosis, the stage of the disease is based on the level of kidney function: Stage Description GFR(mL/min/1.73 m(2)) 1 Kidney damage with normal or decreased GFR 90 2 Kidney damage with mild decrease in GFR 60-89 3 Moderate decrease in GFR 30-59 4 Severe decrease in GFR 15-29 5 Kidney failure <15 (or dialysis) 82 NO MRSA ISOLATED 83 The associate professor of literacy and regulatory agencies both recommend that a throat culture for beta strep be performed if a Rapid Group A Strep assay yields a negative result. Therefore a culture will be automatically performed on all negative samples. N^NEGATIVE FOR GROUP A STREP BY ENZYME IMMUNOASSAY^STREPA 84 NEGATIVE FOR GROUP A BETA STREPTOCOCCUS 85 Anion gap measurement may be of limited value in the presence of any alkalosis, especially in a combined acid base disorder. . 86 Note change in reference range as of 12/16/07. The change was based on recommendations from the [place] [employer]. 87 Please note change in reference range effective 07 . 88 REVIEWED BY BENEDICT CAMPOVERDE MD 89 PLEASE NOTE NEW REFERENCE RANGES. 90 THE URINE SPECIMEN WAS TESTED AT THE LISTED CUTOFFS: DRUG CLASS TEST LEVEL (NG/ML) AMPHETAMINES 300 BARBITUATES 200 BENZODIAZEPINE METABOLITES 200 COCAINE METABOLITES 300 CANNABINOIDS 25 OPIATES 200 PCP 25 THIS IS A SCREENING PROCEDURE. POSITIVE RESULTS ARE NOT CONFIRMED. SPECIMEN WAS RECEIVED WITHOUT CHAIN OF CUSTODY. RESULTS SHOULD BE USED FOR MEDICAL PURPOSES ONLY. . 91 Anion gap measurement may be of limited value in the presence of any alkalosis, especially in a combined acid base disorder. . 92 Please note change in reference range effective 07 . 93 New Reference Range and Interpretation effective 01/28/02 TnI (ng/ml) INTERPRETATION <0.06 ng/ml NOT SUPPORTIVE OF DIAGNOSIS OF MO 0.06 - 0.50 ng/ml INDETERMINATE: SUGGEST SERIAL STUDIES IF CLINICALLY INDICATED. > 0.5 ng/ml CONSISTENT WITH DIAGNOSIS OF [place] . 94 Anion gap measurement may be of limited value in the presence of any alkalosis, especially in a combined acid base disorder. . 95 Please note change in reference range effective 07 . 96 PLEASE NOTE NEW REFERENCE RANGE EFFECTIVE 05 97 Anion gap measurement may be of limited value in the presence of any alkalosis, especially in a combined acid base disorder. . 98 CAROLINE VALUE=2.00 ( OF 02/10/06) Recommended INR for Patients on Oral Anticoagulants Prophylaxis 2.0 - 3.0 Treatment of thrombosis 2.0 - 3.0 Prevention of embolism 2.0 - 3.0 Prevention of embolism from prosthetic heart valves 2.5 - 3.5 Procedures Date CPT Code Description Status 12/27/2015 Colonoscopy Completed 06/27/2015 49425 Cardiac Event Monitor Completed 05/29/2015 25055 Cardiac Event Monitor/Recording Completed 05/01/2015 54531 Holter Monitoring 24 HR New Completed 04/30/2015 81162 Holter Monitoring 24 HR New Completed 03/21/2015 62350 ECHO Transthoracic, Real-Time 2D With Doppler And Color Completed Flow 03/14/2015 17892 Stress Test Completed 03/14/2015 36590 Myocardial Perfusion Imaging Tomographic (Spect) Completed Multiple Studies 02/25/2015 02983 EKG, Interpretation Only Completed 02/25/2015 06802 EKG, Interpretation Only Completed 04/10/2014 16720 ECHO Stress Test Incl Perf Contiuous ekg Monitoring Completed W/Phys Superv 03/29/2014 77284 ECHO Transthoracic, Real-Time 2D With Doppler And Color Completed Flow 03/01/2014 97138 Polysomnography Sleep Staging 4+ Parameters W/Cpap Completed 01/04/2014 24506 EKG Tracing & Interpretation Completed 01/05/2013 54418 EKG Tracing & Interpretation Completed 07/15/2012 09140 Rad Exam; Elbow, Comp Completed 07/15/2012 56091 Injection Single Tendon Origin/Insertion Completed 03/28/2008 30126 Color Doppler Completed 03/28/2008 35432 Pulse Doppler & Continuous Wave Completed 03/28/2008 46664 Pulse Doppler & Continuous Wave Completed 03/28/2008 46959 Echocardiogram Completed Encounters Type Date Location Provider CPT E/M Dx Office Visit 02/25/2017 [facility] Chao Sweet, 88163 J45.901 10:00a - Sydnee Ray G47.33 Office Visit 12/24/2016 11:30a [facility] Ko Estevez, 24506 Z00.01 Medicine - [place] Ray,FACP N35.014 I10 Q27.8 Office Visit 02/15/2016 3:40p [facility] Ko Estevez, 78776 K58.0 - [place] Ray,FACP M25.561 Z23 Office Visit 01/23/2016 1:40p [facility] Ko Estevez, 61434 D64.89 Medicine - [place] Ray,FACP K58.0 N30.10 Office Visit 11/13/2015 9:20a [facility] [place] [address] K62.5 K75.81 D30.10 E66.9 D64.9 I10 Office Visit 11/07/2015 2:40p [facility] - Jay Marroquin, [employer]IMMER [address] R19.7 K62.5 Office Visit 08/21/2015 8:30a [facility] Brandy Anguiano, 86676 R13.10 - Ángel Ray K21.9 Office Visit 04/11/2015 10:00a [facility] [place], 66779 R00.2 [facility] [place], [facility] Office Visit 02/28/2015 9:10a [facility] - Brandy Anguiano, 43122 R07.9 Ángel Ray R00.2 G47.33 Office Visit 02/25/2015 11:04a [facility], 63245 R07.9 Hospitalists M.DAmberly N18.2 J45.20 I10 Office Visit 02/24/2015 11:03a [facility], 14990 R07.9 Hospitalists M.DAmberly N18.2 J45.20 I10 Office Visit 12/18/2014 1:40p [facility] Chao Sweet, 68212 789.03 - Ángel Ray Office Visit 07/06/2014 10:10a [facility] Brandy Anguiano, 07462 V70.0 - Ángel Ray V03.82 V06.1 788.35 278.00 272.1 702.0 Office Visit 05/31/2014 10:15a [facility], 63447 786.50 [facility] Jose.Delmy, [facility] Office Visit 03/30/2014 8:15a [facility] Tani Brown, 67232 327.23 [facility] M.D. Office Visit 01/26/2014 1:30p [facility] Tani Brown, 80336 327.23 [facility] M.D. Office Visit 01/04/2014 10:00a [facility] Randall Conn, 76059 786.50 MSarika, [facility] Office Visit 11/11/2013 10:30a [facility] - Nanci Bartholomew, 08631 780.57 [place] N.P. 796.2 V03.82 Office Visit 08/26/2013 4:20p [facility] Jayde Martinez M.D. 28903 493.92 - [place] Office Visit 02/09/2013 11:00a [facility] Blas Gracia, 33319 272.2 - Ángel Ray 790.6 466.0 Office Visit 01/05/2013 1:20p [facility] Blas Garcia, 83453 493.00 Medicine - Ángel Ray 530.81 V70.0 786.50 Office Visit 07/15/2012 1:30p [facility], 16691 723.1 Kamar Ray 726.32 Office Visit 07/14/2012 4:00p [facility] Blas Garcia, 34502 466.0 - Ángel Ray 493.00 530.81 309.1 723.1 726.32 Office Visit 03/24/2012 11:20a [facility] Blas Garcia, 76472 466.0 - Ángel Ray 309.1 493.00 530.81 Office Visit 12/24/2011 11:40a [facility] Blas Garcia, 51587 309.1 - Ángel Ray 300.02 780.52 Office Visit 12/10/2011 8:20a [facility] Blas Garcia, 57599 309.1 - [place] 300.02 719.49 493.00 780.52 Office Visit 10/01/2011 1:40p [facility] Blas Garcia, 28846 493.10 Medicine - Ángel Ray 530.81 300.00 Office Visit 09/18/2011 11:30a [facility] Brandy Anguiano, 45006 300.00 - Ángel Ray 386.19 379.54 Office Visit 09/09/2011 11:40a [facility] Jayde Martinez M.D. 61277 786.50 - [place] 272.9 278.00 300.02 Office Visit 07/17/2010 8:00a DO Not Use [facility] At Blas Garcia M.D. 40085 455.4 [place] 466.0 Office Visit 07/09/2010 12:45p DO Not Use [facility] Blas Garcia M.D. 00042 455.4 [place] 466.0 Office Visit 03/27/2010 3:00p DO Not Use [facility] Blas Garcia M.D. 01550 850.9 [place] 493.00 Office Visit 03/05/2010 3:40p DO Not Use [facility] At Bl[place] Garcia, 42724 493.00 [place] M.DAmberly 333.94 530.81 726.32 V04.81 Office Visit 04/17/2009 1:45p DO Not Use [facility] At Rigo Sanchez M.D. 35798 465.9 [place] 493.92 536.8 Office Visit 04/12/2009 4:00p DO Not Use [facility] At Rigo Sanchez M.D. 12605 465.9 [place] 493.92 401.1 Office Visit 01/30/2009 4:00p DO Not Use [facility] Sherice Corona, 36985 465.9 [place] M.D. Office Visit 01/29/2009 4:20p DO Not Use [facility] Sherice Corona, 31197 493.00 [place] M.D. 465.9 Office Visit 01/22/2009 8:00a DO Not Use [facility] Sherice Corona, 46918 493.00 [place] M.DAmberly 487.1 401.1 Office Visit 01/11/2009 3:40p DO Not Use [facility] At Yi Mayo, 07899 780.57 [place] M.D. 401.1 Office Visit 11/22/2008 3:00a [facility], David Hurst, 25622 458.9 Hospitalists M.D. Office Visit 11/21/2008 2:00a [facility], David Hurst, 85840 458.9 Hospitalists M.D. 780.57 Office Visit 10/11/2008 9:40a DO Not Use [facility] At Yi Mayo, 47584 401.1 [place] M.D. 307.49 493.00 Office Visit 09/01/2008 8:40a DO Not Use Associate [facility] At [facility], 73655 307.49 [facility] M.D.,FACP 493.00 401.1 Office Visit 04/28/2008 4:00p DO Not Use [facility] 20099 493.00 [place] M.D. 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 Office Visit 01/05/2008 9:40a DO Not Use Associate [facility] At [facility], 10622 922.33 [place] M.D.,FACP 493.00 Office Visit 12/23/2007 8:40a DO Not Use Associate [facility] At [facility], 62941 922.33 [facility] M.D.,FACP 840.8 717.3 Office Visit 12/13/2007 8:30a DO Not Use Associate [facility] At [facility], 14062 842.10 [facility] M.D.,FACP Office Visit 10/22/2007 11:00a DO Not Use Associate [facility] At [facility], 95954 333.94 [facility] M.D.,FACP 530.81 300.02 493.00 Office Visit 03/01/2007 9:20a DO Not Use [facility] At [facility], 31257 493.10 [facility] M.D.,FACP 300.02 E905.3 Plan of Care 05/25/2017 - Jimmy Callejas, NPJ45.901 Unspecified asthma with (acute) exacerbationNew Medication:Prednisone 10 mgComments:I have prescribed the prednisone.Follow up:prnJ11.89 Influenza due to unidentified influenza virus w oth manifestNew Medication:Cheratussin ac 100-10 mg/5MLComments:superintendent measurement the Tamiflu and start that today. If your symptoms worsen or persist please let me know.
[2017-06-23] MEDS ORDERED: Aspirin TAB* 325 MG PO ONE (21:00)
[2017-06-23 21:21] LABS: ABS Basophils 0.1 10^3/ul (0-0.2); ABS Eosinophils 0.4 10^3/ul (0-0.6); ABS Lymphocytes 2.5 10^3/ul (1.0-4.8); ABS Nucleated RBC 0 10^3/ul; Eosinophil % 4.8 % (0-6); Hematocrit 45 % (42-52); Hemoglobin 15.7 g/dl (14.0-18.0); Lymphocyte % 27.8 % (25-47); Mean Corpuscular HGB Conc 35 g/dl (31-36); Mean Corpuscular Hemoglobin 30 pg (27-31); Mean Corpuscular Volume 88 fL (80-94); Mean Platelet Volume 7 um3 (7.4-10.4); Nucleated Red Blood Cells % 0.4; Platelet Count 210 10^3/ul (150-450); Red Cell Distribution Width 14 % (10.5-15); White Blood Count 9.1 10^3/ul (3.5-10.8)
[2017-06-23] MEDS: Nitroglycerin TAB 0.4 MG* 0.4 MG TAB SL PRN ×2 (21:22→21:54)
--- NOTE | 2017-06-23 21:31 | RAD ---
INDICATION: LEFT side chest pain radiating to the back. Cardiac disease. History of asthma. COMPARISON: December 07, 2016 chest radiograph and August 23, 2016 CT. TECHNIQUE: Dual energy PA and routine lateral views of the chest were obtained. REPORT: Accounting for superimposed soft tissues with large body habitus the lungs and pleural spaces are clear. Negative for pneumothorax. The heart, pulmonary vasculature, and mediastinal contours are unremarkable. Unremarkable osseous structures. IMPRESSION: No evidence for acute intrathoracic disease.
[2017-06-23 21:34] LABS: EGFR Non-African American 75.1 (>60)
[2017-06-23] MEDS ORDERED: Iohexol 350* (CONTRAST) 500 ML MDV IV ONE (22:00)
[2017-06-23] MEDS ORDERED: Nitroglycerin 2% OINT* 1 GM PAK TOPICAL ONE (23:03)
--- NOTE | 2017-06-23 23:51 | HP ---
H&P (Free Text) History and Physical: PCP: Jose Theodore MD Date/Time: 06/23/2017 2350 CC: chest pain HPI: Mr Mendoza is a 42YO obese white male HX HTN & angina who presents with onset of squeezing chest pain wrapping around the ribs B around 1800 while watching a movie with his fiance. At times the pain had a sharper character radiating down the L arm and into the L jaw. There was associated SOB, nausea without emesis, & sweating, but no light-headedness or palpitations. Nitroglycerine relieved the pain. He is currently chest pain & symptom-free excepting a nitro-headache. He was evaluated last November and advised to have a stress test, but declined. He is willing to stay for one at this time. PMedHx HTN asthma, moderate persistent FEI, non-compliant with CPAP GERD angina RLS Ambulatory Orders Nursing to reconcile Budesonide/Formote 160/4.5(NF) [Symbicort 160/4.5 (NF)] 2 puff INH BID 03/24/14 Levalbuterol HFA INHALER* [Xopenex Hfa Inhaler*] 2 puff INH Q6H PRN 03/24/14 Lisinopril TAB* [Prinivil TAB 5 MG*] 10 mg PO DAILY 03/24/14 Pantoprazole TAB (NF) [Protonix TAB (NF)] 40 mg PO DAILY 03/24/14 Ropinirole TAB* [Requip TAB*] 0.25 mg PO BEDTIME 09/04/15 Albuterol HFA INHALER* [Ventolin HFA Inhaler*] 1 - 2 puff INH Q4H PRN 11/07/15 Allergies ketorolac [From Toradol] Allergy (Verified 06/23/17 20:23) Hives sertraline [From Zoloft] Allergy (Verified 06/23/17 20:23) Unknown Reaction Details metoclopramide [From Reglan] Adverse Reaction (Verified 06/24/17 01:51) Agitation PSurgHx R ACL repair SocHx: no tobacco, 1 pint whiskey weekly, no recreational drugs; lives with fiance; 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 [place]; full code status FamHx: Mother: alive at 63 with COPD, CAD, DM2; Father: alive at 64, healthy; Sister: healthy; Brother: healthy ROS: as above, otherwise reviewed and all were negative vitals: Vital Signs Temp 36.7 C 06/24/17 07:17 Pulse 78 06/24/17 07:17 Resp 16 06/24/17 07:17 BP 136/90 06/24/17 07:17 Pulse Ox 96 06/24/17 07:17 Intake & Output 06/23/17 06/23/17 06/24/17 11:59 23:59 11:59 Intake Total 355 Balance 355 Weight 99.79 kg 105.506 kg Intake: IV Fluids 345 Oral 10 Constitutional: NAD, normally developed, obese white male HEENM: atraumatic; sclera/conjunctiva: aniceric/clear; hearing: clinically intact; oropharynx: clear, mucosa moist Neck: soft tissue: non-tender; thyroid: normal Pulmonary: clear to auscultation bilaterally, good aeration, no accessory muscle use CV: RR/RR, normal S1S2, no carotid bruit, no jugular venous distention, 2+ B DP/ PT, no edema Abdominal: soft, non-distended, non-tender, no rebound/guarding/rigidity, normoactive bowel sounds, no hepatosplenomegaly or masses, no costovertebral angle tenderness Musculoskeletal: general: grossly intact without tenderness to palpation; gait: stable Integumental: normal appearance and texture of exposed skin Psychiatric orientation: AA&O to PPS affect: calm mood: cooperative eye contact: good content: reliable responses: timely insight: fair Testing: Lab Results 06/23/17 06/23/17 06/23/17 Range/Units 21:05 21:05 21:05 WBC 9.1 (3.5-10.8) 10^3/ul RBC 5.20 (4.0-5.4) 10^6/ul Hgb 15.7 (14.0-18.0) g/dl Hct 45 (42-52) % MCV 88 (80-94) fL MCH 30 (27-31) pg MCHC 35 (31-36) g/dl RDW 14 (10.5-15) % Plt Count 210 (150-450) 10^3/ul MPV 7 L (7.4-10.4) um3 Neut % (Auto) 55.5 (38-83) % Lymph % (Auto) 27.8 (25-47) % [place] % (Auto) 11.0 H (0-7) % Eos % (Auto) 4.8 (0-6) % Baso % (Auto) 0.9 (0-2) % Absolute Neuts (auto) 5.0 (1.5-7.7) 10^3/ul Absolute Lymphs (auto) 2.5 (1.0-4.8) 10^3/ul Absolute Monos (auto) 1.0 H (0-0.8) 10^3/ul Absolute Eos (auto) 0.4 (0-0.6) 10^3/ul Absolute Basos (auto) 0.1 (0-0.2) 10^3/ul Absolute Nucleated RBC 0 10^3/ul Nucleated RBC % 0.4 D-Dimer, Quantitative (Less Than 230) ng/mL Sodium 137 (133-145) mmol/L Potassium 3.7 (3.5-5.0) mmol/L Chloride 103 (101-111) mmol/L Carbon Dioxide 28 (22-32) mmol/L Anion Gap 6 (2-11) mmol/L BUN 13 (6-24) mg/dL Creatinine 1.07 (0.67-1.17) mg/dL Est GFR ( Amer) 96.6 (>60) Est GFR (Non-Af Amer) 75.1 (>60) BUN/Creatinine Ratio 12.1 (8-20) Glucose 86 (70-100) mg/dL Lactic Acid 1.1 (0.5-2.0) mmol/L Calcium 9.3 (8.6-10.3) mg/dL Total Bilirubin 0.50 (0.2-1.0) mg/dL AST 20 (13-39) U/L ALT 42 (7-52) U/L Alkaline Phosphatase 78 (34-104) U/L Troponin I 0.00 (<0.04) ng/mL Total Protein 6.7 (6.4-8.9) g/dL Albumin 4.3 (3.2-5.2) g/dL Globulin 2.4 (2-4) g/dL Albumin/Globulin Ratio 1.8 (1-3) 06/23/17 06/23/17 06/24/17 Range/Units 21:05 23:51 03:32 WBC (3.5-10.8) 10^3/ul RBC (4.0-5.4) 10^6/ul Hgb (14.0-18.0) g/dl Hct (42-52) % MCV (80-94) fL MCH (27-31) pg MCHC (31-36) g/dl RDW (10.5-15) % Plt Count (150-450) 10^3/ul MPV (7.4-10.4) um3 Neut % (Auto) (38-83) % Lymph % (Auto) (25-47) % [place] % (Auto) (0-7) % Eos % (Auto) (0-6) % Baso % (Auto) (0-2) % Absolute Neuts (auto) (1.5-7.7) 10^3/ul Absolute Lymphs (auto) (1.0-4.8) 10^3/ul Absolute Monos (auto) (0-0.8) 10^3/ul Absolute Eos (auto) (0-0.6) 10^3/ul Absolute Basos (auto) (0-0.2) 10^3/ul Absolute Nucleated RBC 10^3/ul Nucleated RBC % D-Dimer, Quantitative < 200 (Less Than 230) ng/mL Sodium (133-145) mmol/L Potassium (3.5-5.0) mmol/L Chloride (101-111) mmol/L Carbon Dioxide (22-32) mmol/L Anion Gap (2-11) mmol/L BUN (6-24) mg/dL Creatinine (0.67-1.17) mg/dL Est GFR ( Amer) (>60) Est GFR (Non-Af Amer) (>60) BUN/Creatinine Ratio (8-20) Glucose (70-100) mg/dL Lactic Acid (0.5-2.0) mmol/L Calcium (8.6-10.3) mg/dL Total Bilirubin (0.2-1.0) mg/dL AST (13-39) U/L ALT (7-52) U/L Alkaline Phosphatase (34-104) U/L Troponin I 0.00 0.00 (<0.04) ng/mL Total Protein (6.4-8.9) g/dL Albumin (3.2-5.2) g/dL Globulin (2-4) g/dL Albumin/Globulin Ratio (1-3) 06/24/17 Range/Units 06:31 WBC (3.5-10.8) 10^3/ul RBC (4.0-5.4) 10^6/ul Hgb (14.0-18.0) g/dl Hct (42-52) % MCV (80-94) fL MCH (27-31) pg MCHC (31-36) g/dl RDW (10.5-15) % Plt Count (150-450) 10^3/ul MPV (7.4-10.4) um3 Neut % (Auto) (38-83) % Lymph % (Auto) (25-47) % [place] % (Auto) (0-7) % Eos % (Auto) (0-6) % Baso % (Auto) (0-2) % Absolute Neuts (auto) (1.5-7.7) 10^3/ul Absolute Lymphs (auto) (1.0-4.8) 10^3/ul Absolute Monos (auto) (0-0.8) 10^3/ul Absolute Eos (auto) (0-0.6) 10^3/ul Absolute Basos (auto) (0-0.2) 10^3/ul Absolute Nucleated RBC 10^3/ul Nucleated RBC % D-Dimer, Quantitative (Less Than 230) ng/mL Sodium (133-145) mmol/L Potassium (3.5-5.0) mmol/L Chloride (101-111) mmol/L Carbon Dioxide (22-32) mmol/L Anion Gap (2-11) mmol/L BUN (6-24) mg/dL Creatinine (0.67-1.17) mg/dL Est GFR ( Amer) (>60) Est GFR (Non-Af Amer) (>60) BUN/Creatinine Ratio (8-20) Glucose (70-100) mg/dL Lactic Acid (0.5-2.0) mmol/L Calcium (8.6-10.3) mg/dL Total Bilirubin (0.2-1.0) mg/dL AST (13-39) U/L ALT (7-52) U/L Alkaline Phosphatase (34-104) U/L Troponin I 0.00 (<0.04) ng/mL Total Protein (6.4-8.9) g/dL Albumin (3.2-5.2) g/dL Globulin (2-4) g/dL Albumin/Globulin Ratio (1-3) ECG, personally reviewed: sinus tachycardia rate 108, non-specific diffuse ST-T changes CXR, personally reviewed: IMPRESSION: No evidence for acute intrathoracic disease. CTA chest/abd/pel, personally reviewed: IMPRESSION: 1. Normal CTA examination of the chest, abdomen and pelvis. 2. Possible hepatic steatosis and mild chronic hepatomegaly. Please correlate to LFTs. 3. Scattered diverticulosis without focal inflammatory change consistent with diverticulitis Impression: 42M HX angina, HTN presenting with chest pain for r/o ACS DIAGNOSIS & PLAN Primary chest pain r/o ACS : telemetry : trend troponin : aspirin : supplemental oxygen : exercise stress in AM : supportive care Secondary HTN : continue lisinopril asthma, moderate persistent : continue budesonide/formoterol & levalbuterol FEI, non-compliant with CPAP : no acute issues GERD : continue pantoprolol RLS : continue ropinirole Admission Rational: observation for r/o ACS DVTp: heparin SQ Code Status: full HCP: jim
[2017-06-24] MEDS ORDERED: Ondansetron INJ* 2 MG/ML VIAL IV PRN (01:29)
[2017-06-24] MEDS ORDERED: Morphine INJ* 2 MG/ML 1 ML CARPUJECT IV PRN (01:29)
[2017-06-24] MEDS ORDERED: Acetaminophen TAB* 325 MG PO PRN (01:29)
[2017-06-24] MEDS ORDERED: CMCS: Melatonin (NF) 3 MG TAB PO PRN (01:29)
[2017-06-24] MEDS ORDERED: NS 0.9% 1000 ML* 1,000 ML IV SCH (01:30)
[2017-06-24] MEDS ORDERED: Ibuprofen TAB* 400 MG PO PRN (01:51)
[2017-06-24] MEDS ORDERED: Omeprazole CAP* 20 MG PO SCH (06:00)
--- NOTE | 2017-06-24 08:09 | RAD ---
STUDY: CT angiography of the chest, abdomen and pelvis. INDICATION: Chest pain radiating to the back in a patient with hypertension COMPARISON: Similar CTA dated August 23, 2016 that did not show any acute abnormality. TECHNIQUE: Multidetector CT angiography of the chest, abdomen and pelvis were obtained from the lung apices to the ischial tuberosities after the intravenous injection of 100 mL Omnipaque 350. Reformats were created in the coronal and sagittal planes. 3-D vascular imaging was created from the source images and reviewed as well. ANGIOGRAPHIC FINDINGS: There is no pathologic aneurysmal dilatation of the thoracic or abdominal aorta. There is no aortic dissection. The major branch vessels off of the aorta are adequately patent. There is continuous in-line flow seen into the bilateral common femoral arteries. NON ANGIOGRAPHIC FINDINGS: Chest: The lungs are clear. There are no large pleural effusions. There is no mediastinal or hilar lymphadenopathy. The heart is grossly normal in appearance. Abdomen & Pelvis: The liver is homogenously hypodense relative to the spleen. There are no focal liver masses or surface irregularity. The appropriately attenuating spleen measures 13.4 cm in greatest axial dimension similar to the previous CTA. The pancreas and adrenal glands are grossly normal in appearance. The gallbladder is normal. The kidneys are normal in appearance without focal mass, calcification or signs of hydronephrosis. The renal cortices enhance promptly and symmetrically on arterial phase imaging. Evaluation of the gastrointestinal tract is limited without oral contrast. The small and large bowel are not distended. The appendix is normal in appearance with gas in the lumen measuring 4 mm in diameter. There are scattered rectosigmoid diverticula but none exhibit focal inflammatory change characteristic of diverticulitis. There is no gross retroperitoneal or mesenteric lymphadenopathy. The pelvic viscera is normal in appearance. Mild multilevel degenerative changes of the thoracic and lumbar spine include loss of intervertebral disc height.There are no sinister bone lesions. IMPRESSION: 1. Normal CTA examination of the chest, abdomen and pelvis. 2. Possible hepatic steatosis and mild chronic hepatomegaly. Please correlate to LFTs. 3. Scattered diverticulosis without focal inflammatory change consistent with diverticulitis
[2017-06-24] MEDS ORDERED: PTO:Albuterol HFA INHALER* 8 gm MDI INH PRN ×2 (09:19→10:00)
[2017-06-24] MEDS ORDERED: Levalbuterol HFA INHALER* 1 PUFF MDI INH PRN (09:20)
[2017-06-24] MEDS ORDERED: Mometasone/Formoter 200/5 MDI INH SCH (10:00)
[2017-06-24] MEDS ORDERED: Lisinopril TAB* 10 MG PO SCH (10:00)
[2017-06-24] MEDS ORDERED: Pantoprazole TAB (NF) 40 MG TAB PO SCH (10:00)
[2017-06-24 11:14] LABS: EGFR Non-African American 76.7 (>60)
[2017-06-24 11:26] LABS: ABS Basophils 0.1 10^3/ul (0-0.2); ABS Eosinophils 0.5 10^3/ul (0-0.6); ABS Monocytes 0.6 10^3/ul (0-0.8); ABS Neutrophils 2.9 10^3/ul (1.5-7.7); ABS Nucleated RBC 0 10^3/ul; Eosinophil % 7.6 % (0-6); Hematocrit 46 % (42-52); Hemoglobin 15.7 g/dl (14.0-18.0); Lymphocyte % 33.4 % (25-47); Mean Corpuscular HGB Conc 34 g/dl (31-36); Mean Corpuscular Hemoglobin 30 pg (27-31); Mean Corpuscular Volume 87 fL (80-94); Mean Platelet Volume 7 um3 (7.4-10.4); Nucleated Red Blood Cells % 0.1; Platelet Count 196 10^3/ul (150-450); Red Blood Count 5.22 10^6/ul (4.0-5.4); Red Cell Distribution Width 14 % (10.5-15)
[2017-06-24 11:37] LABS: INR 0.94 (0.77-1.02)
[2017-06-24 11:45] VITALS: BP 151/96
[2017-06-24] MEDS ORDERED: Metoprolol Succinate XL TAB* 50 MG PO SCH (14:00)
[2017-06-24] MEDS ORDERED: Ropinirole TAB* 0.5 MG TAB PO SCH (21:00)
--- NOTE | 2017-06-25 05:12 | DS ---
DISCHARGE SUMMARY: DATE OF ADMISSION: 06/23/17 DATE OF DISCHARGE: 06/24/17 ADMITTING PROVIDER: Nehemiah Roman MD ATTENDING PHYSICIAN: Ray Lee MD PRIMARY CARE PROVIDER: Ko Estevez MD PRIMARY OUTPATIENT JUNIOR SYSTEMS ENGINEER: Dr. Conn. CHIEF COMPLAINT: Chest and rib pain with shortness of breath. PRINCIPAL DIAGNOSIS: 1. Acute coronary syndrome, ruled out. 2. Aortic dissection, ruled out. HISTORY OF PRESENT ILLNESS AND HOSPITAL COURSE: Kali Mendoza is a 42-year-old obese male with past medical history of hypertension, moderate persistent asthma, obstructive sleep apnea, noncompliant with CPAP, GERD, restless leg syndrome, and intermittent chest pains who was watching a movie around 6 p.m. on date of admission when he developed squeezing type chest pain wrapping around his bilateral ribs. It was sharp and radiated down into his left arm and into his left jaw. He had shortness of breath, nausea, no vomiting , and diaphoresis, but without lightheadedness or palpitations. He took 1 nitroglycerin in the emergency room with some relief and then another one with additional relief. He had similar symptoms last November and he declined staying for a stress test at that time, but was admitted for ACS rule out. He did have a CT chest, abdomen and pelvis, which demonstrated no evidence of aortic dissection. There was scattered diverticulosis without focal inflammatory change and there was possible hepatic steatosis with mild chronic hepatomegaly. His troponins were cycled and negative x4 at 0.00. He had an exercise stress test, which was low risk and showed some PVCs. He was noted to be hypertensive to 176/97 on admission, and then again 154/108 [facility] day #2. Dr. Barker recommended adding a beta rena with continuation of his RAMOS inhibitor. He was started on metoprolol succinate 50 mg p.o. daily. Further questioning revealed that patient often checks his blood pressure at home and it is usually in the 150s and frequently in the 180s or even above 200 on occasion. He was asked to continue to check his blood pressure daily as he may need a third agent and followup with Dr. Ko Estevez and Dr. Conn. He does have a history of GERD, these symptoms felt different from that. He notably has had a cardiac catheterization in 2006, which showed clean coronaries and his last cardiac stress test was in 2011, which showed no defects of a stress induced or fixed nature, normal wall motion and ejection fraction. DISCHARGE MEDICATIONS: Include: 1. Albuterol (Ventolin HFA) inhaler 1 to 2 puffs inhaled q.4 hours p.r.n. 2. Symbicort 2 puffs inhaled b.i.d. 3. Xopenex 2 puffs inhaled q.6 hours p.r.n. (recently prescribed in the setting of bronchitis and flu and frequently uses). 4. Lisinopril 10 mg p.o. daily. 5. Ropinirole 0.25 mg p.o. at bedtime. 6. Metoprolol succinate 50 mg p.o. daily (new). 7. Protonix 40 mg p.o. daily. DIET: Heart healthy, recommended weight loss regimen given BMI of 37.5. ACTIVITY LEVEL: No restrictions. FOLLOWUP: Please follow up with Dr. Ko Estevez within [address] of [address] Conn, Cardiology, within 2 weeks of discharge. TIME SPENT ON DISCHARGE: Thirty-five minutes. [id number]/[facility] #: [id number] JOSE
[2017-06-25] MEDS ORDERED: Aspirin EC Low Dose* 81 MG TAB.EC PO SCH (09:00)
[2017-06-25] MEDS ORDERED: Heparin VIAL(*) 5000 UNITS/ML VIAL (FIVE THOUSAND) SUBCUT SCH (22:00)
== END 2017-06-24 15:10 | disposition home or self-care (01) ==
LOC: ED 20:16 → MEDTELE 23:50
PROVIDERS: ADMIT Hospitalist; ATTEND Internal Medicine
DX: R07.89 Other chest pain (principal); R06.02 Shortness of breath; I10 Essential (primary) hypertension; J45.909 Unspecified asthma, uncomplicated; K21.9 Gastro-esophageal reflux disease without esophagitis; I20.9 Angina pectoris, unspecified; G25.81 Restless legs syndrome; Z79.82 Long term (current) use of aspirin
CPT/HCPCS: 36415; 71046; 71275; 74174; 80053; 82565; 83605; 84484; 84520; 85025; 85379; 85610; 85730; 93005; 93017; 94640; 94760; 96360; 99285; A9270-GY; G0378; Q9967

== ENCOUNTER → 2018-03-28 22:43 | Emergency (ER) | payer OTHER ==
[2018-03-28 23:32] VITALS: BP 165/108
== END | disposition left against medical advice (07) ==
LOC: ED 22:43
DX: R07.9 Chest pain, unspecified (principal); Z53.21 Procedure and treatment not carried out due to patient leaving prior to being seen by health care provider
CPT/HCPCS: 93005

== ENCOUNTER 2019-08-22 12:55 | Emergency (ER) | payer OTHER ==
[2019-08-22] MEDS ORDERED: NS 0.9% 1000 ml BAG 1,000 ML IV ONE (13:20)
[2019-08-22 13:39] LABS: Hematocrit 45 % (42-52); Hemoglobin 15.4 g/dL (14.0-18.0); Mean Corpuscular HGB Conc 34 g/dL (31-36); Mean Corpuscular Hemoglobin 31 pg (27-31); Mean Corpuscular Volume 90 fL (80-94); Mean Platelet Volume 6.6 fL (7.4-10.4); Platelet Count 236 10^3/uL (150-450); Red Blood Count 4.99 10^6 /uL (4.18-5.48); Red Cell Distribution Width 15 % (10-15); White Blood Count 7.9 10^3/uL (3.5-10.8)
[2019-08-22 13:45] LABS: INR 1.04 (0.82-1.09)
[2019-08-22 13:59] LABS: Albumin 4.2 g/dL (3.2-5.2); Albumin/Globulin Ratio 1.6 (1-3); BUN/Creatinine Ratio 17.2 (8-20); EGFR African American 98.5 (>60); EGFR Non-African American 81.4 (>60); Globulin 2.7 g/dL (2-4); Magnesium 1.9 mg/dL (1.9-2.7); Potassium 4.2 mmol/L (3.5-5.0); Total Bilirubin 0.4 mg/dL (0.2-1.0); Total Protein 6.9 g/dL (6.4-8.9)
[2019-08-22 14:01] LABS: ABS Basophils 0.1 10^3/ul (0-0.2); ABS Lymphocytes 1.3 10^3/ul (1.0-4.8); ABS Monocytes 0.4 10^3/ul (0-0.8); Eosinophil % 0.6 %; Lymphocyte % 17.1 %; Nucleated Red Blood Cells % 0.1
[2019-08-22 14:55] LABS: TSH (Thyroid Stimulating Horm) 1.23 mcIU/mL (0.34-5.60)
[2019-08-22 16:54] VITALS: BP 158/107
== END 2019-08-22 16:53 | disposition home or self-care (01) ==
LOC: ED 12:55

== ENCOUNTER 2020-09-19 09:17 | Inpatient (IN) ==
[~2020-09-19 09:17] MED LIST: Buffered Lidocaine 1% SYRIN 1 ml INTRADERM ONE; Lactated Ringers 1000 ml BAG 1,000 ML IV SCH
[2020-09-19] MEDS ORDERED: ceFAZolin 2 GM PREMIX 2 GM/50 ML BAG ONE (09:32)
[2020-09-19] MEDS ORDERED: Heparin 5000 UNITS/ML 1 mL VIAL ONE (09:32)
[2020-09-19] MEDS ORDERED: Methylene Blue 0.5 % 50 MG/10 ML AMP IV ONE (09:32)
[2020-09-19] MEDS ORDERED: Bupivacaine 0.25% EPI 200,000 30 ML SDV ONE (09:32)
[2020-09-19] MEDS ORDERED: Propofol 10 MG/ML 20 ML BTL ONE (09:38)
[2020-09-19] MEDS ORDERED: Rocuronium 50 mg VIAL 10 mg/ml 5 ml VIAL (50 mg) ONE (09:39)
[2020-09-19] MEDS ORDERED: Midazolam 2 mg/2 ml VIAL 1 mg/ml 2 ml VIAL (2 mg) ONE (09:39)
[2020-09-19] MEDS ORDERED: fentaNYL 100 mcg/2 ml 50 MCG/ML VIAL ONE ×4 (09:39→14:26)
[2020-09-19] MEDS ORDERED: ceFAZolin 1 GM ADVAN 1 GM ADDV.VIAL IVPB ONE (10:03)
[2020-09-19] MEDS ORDERED: Ondansetron 4 mg VIAL 2 MG/ML 2 ml VIAL ONE (11:01)
[2020-09-19] MEDS ORDERED: Dexamethasone IV 4 MG/ML VIAL 1 ml VIAL ONE (11:01)
[2020-09-19] MEDS ORDERED: oxyCODONE/Acetamin 5/325 mg TAB PO PRN (13:08)
[2020-09-19] MEDS ORDERED: Ondansetron 4 mg VIAL 2 MG/ML 2 ml VIAL IV PRN (13:15)
[2020-09-19] MEDS ORDERED: diPHENhydraMINE IV 50 MG/ML 1 ml VIAL (BENADRYL) SLOW PUSH PRN (13:20)
[2020-09-19] MEDS ORDERED: HYDROmorphone 0.5 MG/0.5 ML SYRINGE IV SLOW PU PRN (13:20)
[2020-09-19] MEDS: fentaNYL 100 mcg/2 ml 50 MCG/ML VIAL IV PRN ×5 (13:22→14:27)
[2020-09-19] MEDS ORDERED: Heparin 5000 UNITS/ML 1 mL VIAL SUBCUT SCH (14:00)
[2020-09-19] MEDS ORDERED: HYDROmorphone 1 MG/1 ML SYRINGE ONE (15:18)
[2020-09-19] MEDS: HYDROmorphone 1 MG/1 ML SYRINGE IV SLOW PU PRN ×2 (15:19→20:37)
[2020-09-19] MEDS ORDERED: Albuterol HFA INHALER 8 gm MDI INH PRN (15:20)
[2020-09-19] MEDS: Lactated Ringers 1000 ml BAG 1,000 ML IV SCH ×2 (15:23→22:11)
[2020-09-19] MEDS ORDERED: HYDROmorphone 0.5 MG/0.5 ML SYRINGE IV SLOW PU ONE (16:23)
[2020-09-19] MEDS: Heparin 5000 UNITS/ML 1 mL VIAL SUBCUT SCH (17:01)
[2020-09-19] MEDS: Famotidine IV 10 MG/ML 2 ml VIAL (20 mg) IV SLOW PU SCH (20:37)
[2020-09-19] MEDS: Mometasone/Formoter 100/5 MDI INH SCH (22:35)
[2020-09-20] MEDS: Heparin 5000 UNITS/ML 1 mL VIAL SUBCUT SCH ×3 (01:12→16:56)
[2020-09-20] MEDS: HYDROmorphone 1 MG/1 ML SYRINGE IV SLOW PU PRN ×3 (01:12→11:12)
[2020-09-20] MEDS: Lactated Ringers 1000 ml BAG 1,000 ML IV SCH ×2 (05:12→12:32)
[2020-09-20] MEDS: Mometasone/Formoter 100/5 MDI INH SCH ×2 (07:17→19:37)
[2020-09-20] MEDS: Famotidine IV 10 MG/ML 2 ml VIAL (20 mg) IV SLOW PU SCH ×2 (08:32→20:31)
[2020-09-20] MEDS: D5W 1/2 NS KCl 20 meq 1000 ml 1,000 ML IV SCH (15:37)
[2020-09-20] MEDS: HYDROcodone/ACET. 7.5/325 LIQ 15 ML UDC PO PRN (15:39)
[2020-09-21] MEDS: D5W 1/2 NS KCl 20 meq 1000 ml 1,000 ML IV SCH ×2 (00:10→07:40)
[2020-09-21] MEDS: HYDROcodone/ACET. 7.5/325 LIQ 15 ML UDC PO PRN ×2 (00:20→07:32)
[2020-09-21] MEDS: Heparin 5000 UNITS/ML 1 mL VIAL SUBCUT SCH ×2 (00:21→08:41)
[2020-09-21] MEDS: Mometasone/Formoter 100/5 MDI INH SCH (07:12)
[2020-09-21] MEDS: Famotidine IV 10 MG/ML 2 ml VIAL (20 mg) IV SLOW PU SCH (08:41)
[2020-09-21 11:15] VITALS: BP 143/86
== END 2020-09-21 15:43 | disposition home or self-care (01) | DRG 621 ==
LOC: AA 09:17 → SSU 15:02
PROVIDERS: ADMIT Surgery; ATTEND Surgery

== ENCOUNTER 2020-09-24 15:38 | Observation (INO) ==
[2020-09-24] MEDS ORDERED: NS 0.9% 1000 ml BAG 1,000 ML IV ONE (16:18)
[2020-09-24] MEDS ORDERED: Ondansetron 4 mg VIAL 2 MG/ML 2 ml VIAL IV ONE ×2 (17:18→19:17)
[2020-09-24] MEDS ORDERED: Morphine 4 MG/ML VIAL (1 ml) IV ONE ×2 (17:18→19:17)
[2020-09-24 17:20] LABS: ABS Basophils 0.1 10^3/ul (0-0.2); ABS Eosinophils 0.3 10^3/ul (0-0.6); ABS Lymphocytes 0.9 10^3/ul (1.0-4.8); ABS Monocytes 0.8 10^3/ul (0-0.8); ABS Neutrophils 6.1 10^3/ul (1.5-7.7); Hematocrit 44 % (42-52); Hemoglobin 14.7 g/dL (14.0-18.0); Lymphocyte % 11.3 %; Mean Corpuscular HGB Conc 34 g/dL (31-36); Mean Corpuscular Hemoglobin 27 pg (27-31); Mean Corpuscular Volume 82 fL (80-94); Mean Platelet Volume 7.4 fL (7.4-10.4); Platelet Count 292 10^3/uL (150-450); Red Blood Count 5.38 10^6 /uL (4.18-5.48); Red Cell Distribution Width 17 % (10-15); White Blood Count 8.3 10^3/uL (3.5-10.8)
[2020-09-24 17:38] LABS: Albumin 4.7 g/dL (3.2-5.2); Albumin/Globulin Ratio 1.7 (1-3); C Reactive Protein 73.09 mg/L (<8.01); Calcium 9.9 mg/dL (8.6-10.3); EGFR African American 76.3 (>60); EGFR Non-African American 63.1 (>60); Globulin 2.7 g/dL (2-4); Potassium 4.4 mmol/L (3.5-5.0); Total Bilirubin 0.7 mg/dL (0.2-1.0); Total Protein 7.4 g/dL (6.4-8.9)
[2020-09-24] MEDS ORDERED: Iodixanol (CONTRAST) 320 MG/ML 100 ML SDV IV ONE (18:36)
[2020-09-24] MEDS ORDERED: Metoclopramide 5 MG/ML VIAL (10 mg) IV ONE (19:15)
[2020-09-24 20:54] LABS: Urine Appearance Clear; Urine Bilirubin Negative (Negative); Urine Blood Negative (Negative); Urine Color Yellow; Urine Glucose Negative (Negative); Urine Ketones 2+ (Negative); Urine Nitrite Negative (Negative); Urine Protein Negative (Negative); Urine Urobilinogen Negative (Negative)
[2020-09-24 20:56] LABS: Urine Specific Gravity > 1.060 (1.002-1.030)
[2020-09-24] MEDS ORDERED: Lorazepam PYXIS KEY PRN (21:36)
[2020-09-24] MEDS ORDERED: LORazepam 2 mg VIAL 1 ml IV PUSH PRN (21:36)
[2020-09-24] MEDS: Pantoprazole VIAL 40 MG VIAL IV SCH (21:55)
[2020-09-24] MEDS: HYDROmorphone 1 MG/1 ML SYRINGE IV SLOW PU PRN (21:55)
[2020-09-24] MEDS: Prochlorperazine 5 mg/ml 2 ml VIAL (10 mg) IV PRN (21:55)
[2020-09-24] MEDS: Lactated Ringers 1000 ml BAG 1,000 ML IV SCH (21:55)
[2020-09-25] MEDS: Ondansetron 4 mg VIAL 2 MG/ML 2 ml VIAL IV PRN ×3 (01:00→10:49)
[2020-09-25] MEDS: HYDROmorphone 1 MG/1 ML SYRINGE IV SLOW PU PRN ×6 (01:00→19:49)
[2020-09-25] MEDS: Lactated Ringers 1000 ml BAG 1,000 ML IV SCH ×2 (05:22→17:00)
[2020-09-25] MEDS: Prochlorperazine 5 mg/ml 2 ml VIAL (10 mg) IV PRN ×2 (07:29→18:02)
[2020-09-25] MEDS: Pantoprazole VIAL 40 MG VIAL IV SCH (09:32)
[2020-09-25] MEDS ORDERED: ceFAZolin 2 GM PREMIX 2 GM/50 ML BAG IVPB ONE (10:30)
[2020-09-25] MEDS ORDERED: Bupivacaine 0.25% EPI 200,000 30 ML SDV ONE (11:06)
[2020-09-25] MEDS ORDERED: Naloxone 0.4 mg VIAL 0.4 mg/ml 1 ml VIAL IV PRN (13:34)
[2020-09-25] MEDS ORDERED: DiMENhydriNATE IV 50 mg/ml 1 ml VIAL IV PUSH PRN (13:34)
[2020-09-25] MEDS ORDERED: HYDROmorphone 1 MG/1 ML SYRINGE IV PRN (13:34)
[2020-09-25] MEDS ORDERED: HYDROcodone/ACET. 7.5/325 LIQ 15 ML UDC PO PRN (14:06)
[2020-09-25] MEDS ORDERED: Albuterol HFA INHALER 8 gm MDI INH PRN (14:29)
[2020-09-25] MEDS: Mometasone/Formoter 100/5 MDI INH SCH (19:25)
[2020-09-26] MEDS: Lactated Ringers 1000 ml BAG 1,000 ML IV SCH ×3 (06:03→12:51)
[2020-09-26] MEDS: Pantoprazole VIAL 40 MG VIAL IV SCH (08:53)
[2020-09-26] MEDS: HYDROmorphone 1 MG/1 ML SYRINGE IV SLOW PU PRN (10:20)
[2020-09-26] MEDS: Mometasone/Formoter 100/5 MDI INH SCH (10:49)
[2020-09-26 12:14] VITALS: BP 139/85
== END 2020-09-26 16:30 | disposition home or self-care (01) ==
LOC: ED 15:38 → SSU 15:38
PROVIDERS: ADMIT Surgery; ATTEND Surgery